=== PATIENT | female | born 1985 | race Caucasian/White ===

== ENCOUNTER 2021-10-16 22:09 | Emergency (ER) | payer OTHER, SELFPAY ==
[2021-10-16 22:13] VITALS: BP 161/90; PULSE 88; RESP 16; TEMP 36.5; O2SAT 100; BMI 22.3
--- NOTE | 2021-10-16 22:24 | ED_ITS ---
HPI - Overdose General Chief Complaint: Overdose Stated Complaint: od Time Seen by Provider: 10/16/21 22:19 Source: patient and EMS Mode of arrival: EMS Limitations: no limitations History of Present Illness HPI Narrative: Patient comes to the emergency room after an accidental heroin overdose. Patient admits to having drinking alcohol before as well. Patient states she was at a . At the the patient learned that 1 of her close friends is doing heroin. The patient was trying to lecture her friend on how to stop using heroin, as the patient has not used in over 8 years. However, due to the stress of the today she relapsed. Patient states it was an accidental overdose, denies suicidal or homicidal ideation. Patient was found by police department with agonal breathing in her car. Patient received 1 dose of nasal Narcan. MD complaint: accidental overdose Related Data Allergies Allergy/AdvReac Type Severity Reaction Status Date / Time No Known Allergies Allergy Verified 10/16/21 22:27 Review of Systems Verdana 4l Review of Systems: Verdana 4d Verdana 4d Constitutional : No Weight loss, No Fever, No Chills, No Night Sweats, No Fatigue, No Malaise ENT/Mouth : No Hearing loss, No Ear Pain, No Nasal Congestion, No Sinus Pain, No Hoarseness, No sore throat, No Rhinorrhea, No Swallowing DifficultyDifficulty Eyes: No Eye Pain, No Swelling, No Redness, No Foreign Body, No Discharge, No Vision Changes Cardiovascular : No Chest Pain, No SOB, No Dyspnea on Exertion, No Orthopnea, No Edema, No Palpitations Respiratory : No Cough, No Sputum, No Wheezing, No Smoke Exposure, No Dyspnea Gastrointestinal : No Nausea, No Vomiting, No Diarrhea, No Constipation, No abdominal Pain, No Hematochezia, No Melena Genitourinary : no irregular bleeding, No Dysuria, No Urinary Frequency, No Hematuria, No Urinary Incontinence, No Urgency, No Flank Pain, No Urinary Flow Changes, No Hesitancy Musculoskeletal : No joint pain, No Myalgias, No Joint Swelling Skin : No Skin Lesions, No rash Neuro : No Weakness, No Numbness, No Paresthesias, No Loss of Consciousness, No Dizziness, No Headache Psych : No Anxiety/Panic, No Depression, No SI/HI/AH/VH, No Social Issues, Heme/Lymph: No Bruising, No Bleeding,No Lymphadenopathy Endocrine : No Polyuria, No Polydipsia, No Temperature Intolerance PMF Past Medical History Medical History (Updated 10/16/21 @ 22:27 by Annamaria Elliott MD) Substance abuse Social History Social History Advance Directives: No Advance Directives Information Provided: Yes Physical Exam Verdana 4l Vital Signs: Verdana 4d Verdana 4d Vital Signs: Verdana 4d Verdana 4Bd Last Vital Signs Verdana 4d Therapeutic Recreation Leader New 4d Therapeutic Recreation Leader New 4d Temp 97.7 F 10/16/21 22:13 Therapeutic Recreation Leader New 4d Pulse 88 10/16/21 22:13 Therapeutic Recreation Leader New 4d Resp 16 10/16/21 22:13 BP 161/90 H 10/16/21 22:13 Pulse Ox 100 10/16/21 22:13 BMI result Body Mass Index 22.3 Const: Other: Appearance: Alert. Oriented X3. No acute distress. Eyes: Pupils equal, round and reactive to light. ENT: Pharynx normal. Neck: Normal inspection. Neck supple. No lymph nodes noted. No crepitus CVS: Normal heart rate and rhythm. Pulses normal. Normal S1 and S2 Respiratory: No respiratory distress. Breath sounds normal. No Wheezing. No rales Abdomen: Soft and nontender. No rigidity. No distention. good BS x4 Skin: Skin warm and dry. Normal skin color. Normal skin turgor. Extremities: No lower extremity edema. No Lacerations. No Rash Neuro: Oriented X 3. No motor deficit. No sensory deficit. Moving all extermities. No slurred speech. Psych: Calm, cooperative, teary Course Course Course Narrative: Patient remains alert and oriented x3, no acute distress, awake, oxygen saturation 100% on room air. Patient denies suicidal homicidal ideation. Patient declined to see a womens volleyball coach/care team. Patient was discharged with Narcan Discharge Plan Discharge Clinical Impression: Accidental heroin overdose Patient Disposition: Home, Self-Care Instructions: Adult Overdose (ED) Additional Instructions: Please follow-up with your primary care physician tomorrow. If you have any worsening or new symptoms, please return to the emergency room or call 911
[2021-10-16 23:33] VITALS: BP 117/73; PULSE 79; RESP 16; TEMP 36.9; O2SAT 100
== END 2021-10-16 23:40 | disposition home or self-care (01) ==
LOC: HO.ED 22:39
PROVIDERS: Emergency Provider Emergency Medicine; PCP Pediatrics
DX: T40.1X1A Poisoning by heroin, accidental (unintentional), initial encounter (principal); F19.10 Other psychoactive substance abuse, uncomplicated; Y92.810 Car as the place of occurrence of the external cause
CPT/HCPCS: 99283; 99284

== ENCOUNTER 2022-05-11 21:12 | Emergency (ER) | payer OTHER, SELFPAY ==
[2022-05-11 22:03] VITALS: BP 118/62; PULSE 82; RESP 18; TEMP 36.9; O2SAT 100; BMI 21.8
--- NOTE | 2022-05-12 00:13 | ED_ITS ---
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, tripped on the curb and cut knee, she is easily able to walk on, no other injury Related Data Allergies Allergy/AdvReac Type Severity Reaction Status Date / Time No Known Allergies Allergy Verified 10/16/21 22:27 Review of Systems Review of Systems: Positive for right knee laceration negatives are no dizziness no weakness no fainting no feeling faint no head injury no headache no loss of consciousness no dizziness no confusion no neck pain no back pain no rib pain no other extremity pains no difficulty walking Yes all other systems are reviewed and are negative [facility] Past Medical History Source: nursing notes reviewed Medical History (Updated 05/12/22 @ 00:17 by JOSE Barillas) Substance abuse Social History Social History Advance Directives: No Advance Directives Information Provided: No Physical Exam Vital Signs: Vital Signs: Last Vital Signs Temp 98.5 F 05/11/22 22:03 Pulse 82 05/11/22 22:03 Resp 18 05/11/22 22:03 BP 118/62 05/11/22 22:03 Pulse Ox 100 05/11/22 22:03 O2 Del Method 05/11/22 22:03 BMI result Body Mass Index 21.8 General appearance is no distress Head is normocephalic atraumatic Neck is supple nontender Respiratory no distress The back full range of motion Extremities full range of motion x4 Right knee there is a horizontal 1.5 cm laceration over the patella, there is no bony tenderness there is full range of motion in the knee and patient ambulates with mild limp Other extremities normal No focal motor sensory deficits Course Course Course Narrative: Procedure note right knee 1.5 cm lasted radiation is cleansed and irrigated with normal saline Anesthesia is 6 cc of 1% lidocaine Three sutures are placed Dressing is placed, patient ambulated easily and was discharged Discharge Plan Discharge Clinical Impression: Laceration of knee, right Patient Disposition: Home, Self-Care Additional Instructions: Stitches out 7-10 days Return any time for redness swelling any sign of infection You got a tetanus shot Follow with [facility] for suture removal or any problems for work related laceration Referrals: [facility] [Provider Group] (Right knee laceration at work) Stand Alone Forms: Work/School Release Interventions: ED Discharge Assessment Last Done: 05/12/22 00:53 Discharge Date/Time: 05/12/22 00:53
[2022-05-12] MEDS: Diphth,Pertus(ACell),Tet Adult 0.5 ML SYRINGE IM (00:21)
== END 2022-05-12 00:53 | disposition home or self-care (01) ==
PROVIDERS: Emergency Provider Internal Medicine; PCP Pediatrics
DX: S81.011A Laceration without foreign body, right knee, initial encounter (principal); W10.1XXA Fall (on)(from) sidewalk curb, initial encounter; Y93.01 Activity, walking, marching and hiking; Y92.480 Sidewalk as the place of occurrence of the external cause; Y99.0 Civilian activity done for income or pay
CPT/HCPCS: 12001; 90471; 90715; 99282; 99284

== ENCOUNTER 2025-05-12 23:57 | Emergency (ER) | payer SELFPAY ==
[2025-05-13] VITALS (8 sets, daily range): BP systolic 88–124; BP diastolic 40–76; PULSE 62–85; RESP 14–18; TEMP 36.2–36.8; O2SAT 95–100; BMI 24.0
--- OUTSIDE RECORDS SUMMARY | 2025-05-13 01:18 | XMS_ITS | Clinical Summary ---
Author Organization [address] Address [address] [place] [phone] Phone Care Team Providers Care Calibration Specialist Name Role Phone Natacha Still MD Primary Care Prov ider Allergies Active Allergy Reactions Criticality Noted Date Comments Other 04/05/2009 Seasonal Allergies Vancomycin 10/09/2013 Medications cyclobenzaprine (FLEXERIL) 10 mg tablet Take 1 tablet (10 mg total) by mouth 3 (three) times a day if needed. 3 Active valACYclovir (VALTREX) 1 gram tablet Take 2 tablets (2,000 mg total) by mouth 2 (two) times a day. 2 Active busPIRone (BUSPAR) 7.5 mg tablet TAKE 1 TABLET BY MOUTH THREE TIMES A DAY 1 Active ARIPiprazole (ABILIFY) 5 mg tablet Take 1 tablet (5 mg total) by mouth 1 (one) time each day in the morning. 5 Active clonazePAM (KlonoPIN) 0.5 mg tablet Take 1 tablet (0.5 mg total) by mouth 2 (two) times a day. Max Daily Amount: 1 mg 5 Active cloNIDine (CATAPRES) 0.1 mg tablet Take 1 tablet (0.1 mg total) by mouth 2 (two) times a day. 5 Active naltrexone (DEPADE) 50 mg tablet Take 1 tablet (50 mg total) by mouth 1 (one) time each day. 5 Active topiramate (TOPAMAX) 100 mg tablet Take 1 tablet (100 mg total) by mouth 1 (one) time each day. 5 Active buPROPion XL (WELLBUTRIN XL) 300 mg 24 hr tablet Take 1 tablet (300 mg total) by mouth 1 (one) time each day. 5 Active buPROPion XL (WELLBUTRIN XL) 150 mg 24 hr tablet Take 1 tablet (150 mg total) by mouth 1 (one) time each day. 5 Active norelgestromin- ethinyl estradiol (ORTHO EVRA) 150-35 mcg/[address] 1 patch on the skin 1 (one) time per week. 04/17/20 Discontinu ed(Therapy completed) acyclovir (ZOVIRAX) 400 mg tablet Take 1 tablet (400 mg total) by mouth 2 (two) times a day. 2 04/17/20 25 Discontinu ed(Therapy completed) buPROPion SR (WELLBUTRIN SR) 100 mg 12 hr tablet Take 1 tablet (100 mg total) by mouth 2 (two) times a day. 1 04/17/20 25 Discontinu ed(Therapy completed) Active Problems Problem Noted Date Diagnosed Date GARRETT III (cervical intraepithelial neoplasia III) 09/18/2024 Overview (09/18/2024): GARRETT II - III; Dr. Blank Opiate addiction ([facility] V24, [facility] V28) 02/2025 Overview (09/18/2024): pain meds (not prescribed) Opioid dependence in remission ([facility] V24, [facility] V28) 05/20/2018 Back spasm 02/03/2017 Humeral fracture 11/28/2013 Overview (09/18/2024): R; at the greater tuberosity Overweight 10/09/2013 Eczema 07/29/2011 Anxiety 07/03/2011 Depression 07/03/2011 Sleep disorder 07/03/2011 Acne 10/03/2008 Tobacco use disorder 10/03/2008 Encounters Date Type Department Care Team Description 04/17/2025 2:23 PM EDT - 04/17/2025 11:59 PM EDT Hospital [facility] [address], [place] [phone] Bilateral bunions Discharge Disposition: Home or Self Care 04/17/2025 1:30 PM EDT Office Visit Adult [facility] [address], [place] [phone] Iris Samano PA Bilateral bunions (Primary Dx); Numbness of left foot; Eustachian tube dysfunction, bilateral; Moderate episode of recurrent major depressive disorder (CMS/HCC V24, CMS/HCC V28); Screening for depression; Encounter for screening involving social determinants of health (SDoH); Encounter for screening mammogram for malignant neoplasm of breast from Last 3 Months Immunizations Name Administration Dates Next Due DTP 01/11/1990, 6,03/13/1985,01/11,1984 Hepatitis B (Rnozdwv-W-Gpfpm , Recombivax HB-Adult) 19yo and older 01/21/2000,08/20/1999,07/16/1999 Influenza Quadravalent, MDCK , 0.5ml, preservative free (Flucelvax) 6mo and older 05/20/2018,07/21/2016 Influenza trivalent, with pr eservative (Fluzone; Afluria) 6mo and older 09/04/2014,07/03/2011 MMR, measles mumps and rubel la Live (Priorix; M-M-R II) 12mo and older 04/13/1997,02/11/1986 Meningococcal Polysaccharide 05/03/2003 OPV 01/11/1990, 6,01/11/1985,11/11 Td Tetanus diptheria (Tdvax) 7yo and older 10/13/2007,01/21/2000 Tdap Tetanus diptheria acell ular pertussis (Boostrix; Adacel) 7yo and older 09/04/2014 Varicella live (Varivax) 12m o and older 02/11/1990 Surgical History Surgery Date Site/Laterality Comments OTHER SURGICAL HISTORY 2012 PROCEDURE: VT DRAINAGE FINGER ABSCESS SIMPLE Medical History Medical History Date Comments Meningitis spinal 08/1985 DX:Meningitis spinal Otitis DX:Otitis Varicella DX:Varicella GARRETT III (cervical intraepith elial neoplasia III) 12/21 DX:GARRETT III (cervical intraep ithelial neoplasia III); COMMENT: GARRETT II - III; Dr. Blank Opiate addiction ([facility] V2 4, [facility] V28) DX:Opiate addiction ([facility]); C OMMENT: pain meds (not prescribed) Tobacco use disorder DX:Tobacco use disorder Anxiety 07/03/2011 DX:Anxiety Depression 07/03/2011 DX:Depression Eczema 07/29/2011 DX:Eczema Humeral fracture 11/28/2013 DX:Humeral frac ture; COMMENT: R; at the greater tuberosity Family History Medical History Relation Name Comments Stroke Father Relation Name Status Comments Father Alive stroke Maternal Grandfather (Age 70) he art problem Maternal Grandmother (Age 58) br [place] Mother Alive healthy Paternal Grandfather alzihme rs Paternal Grandmother Alive healthy Sister 1 Alive healthy Sister 2 Alive healthy Social History Tobacco Use Types Packs/Day Years Used Date Smoking Tobacco: Every Day Cigarettes Smokeless Tobacco: Never Alcohol Use Standard Drinks/Week Comments Yes 0.8 (1 standard drink = 0.6 oz p ure alcohol) Housing Instability Answer Date Recorde d Are you worried that in the next 2 months you may not have stable housing? No 04/17/2025 Food Access & Nutrition Answer Date Rec orded Do you have access to a vari ety of food including fruits and vegetables? Yes 04/17/2025 Health Literacy Answer Date Recorded How often do you need to hav e someone help you when you read instructions, pamphlets, or other written material from your doctor or pharmacy? Never 04/17/2025 Caregiver: How often do you need to have someone help you when you read instructions, pamphlets, or other written material from your doctor or pharmacy? Not on file 04/17/2025 Financial Risk Answer Date Recorded How hard is it for you to pa y for the very basics like food, housing, medical care, and air conditioning / heating? Not very hard 04/17/2025 Transportation Answer Date Recorded Has the lack of transportati on kept you from meetings, work, or from getting things needed for daily living? No Has the lack of transportati on kept you from medical appointments or from getting medications? No 04/17/2025 Social Isolation Answer Date Recorded How often do you feel lonely or isolated from th ose around you? Never 04/17/2025 Food Risk Answer Date Recorded Within the past 12 months we worried whether our food would run out before we got money to buy more. Never true 04/17/2025 Within the past 12 months th e food we bought just didn't last and we didn't have money to get more. Never true 04/17/2025 Dependent Care Answer Date Recorded Do you need help finding or paying for care for your loved ones. For example, children's institution attendant or elderly care for an older adult? No 04/17/2025 Education Answer Date Recorded Do you think completing more education or training, like finishing a GED, going to college, or learning a trade, would be helpful for you? No 04/17/2025 Employment and Income Answer Date Recor ded During the last four weeks, have you been actively looking for work? No 04/17/2025 Living Situation Answer Date Recorded What is your living situation? 0 04/17/2025 Comments Unknown Sex and Gender Information Value Date Recorded Sex Assigned at Not on file Legal Sex Female 7:48 AM EST Gender Identity Not on file Sexual Orientation Not on file Obstetrics History Last Filed Vital Signs Vital Sign Reading Time Taken Comments Blood Pressure 98/58 04/17/2025 1:39 PM EDT Pulse 66 04/17/2025 1:39 PM EDT Temperature 36.6 C (97.8 F) 04/17/2025 1:39 PM EDT Respiratory Rate 13 04/17/2025 1:39 PM EDT Oxygen Saturation 99% 04/17/2025 1:39 PM EDT Inhaled Oxygen Concentration - - Weight 54.9 kg (121 lb) 04/17/2025 1:39 PM EDT Height 162.6 cm (5' 4 ) 04/17/2025 1:39 PM EDT Body Mass Index 20.77 04/17/2025 1:39 PM EDT Plan of Treatment Upcoming Encounters Date Type Department Care Team (Late st Contact Info) Description 06/05/2025 8:00 AM EDT Office Visit Adult [facility] [address] [place] [phone] Iris Samano PA [address] [place] [phone] Health Maintenance Due Date Last Done Comments Breast Cancer Screening 1984 Hepatitis A Vaccines (1 of 2 - Risk 2-dose series) 2003 Pneumococcal Vaccine: Pediatrics (0 to 5 Years) and At-Risk Patients (6 to 49 Years) (1 of 2 - PCV) 2003 Cervical Cancer Screening: Pap Smear 11/03/2019 11/03/2016 HIV Screening 08/22/2022 Hepatitis C Screening 08/22/2022 DTaP,Tdap,and Td Vaccines (9 - Td or Tdap) 09/04/2024 09/04/2014, 10/13/2007, 01/21/2000, Additional history exists Influenza Vaccine (#1) 2025 8, 07/21/2016, 09/04/2014, Additional history exists Social Influencers of Health Screening 04/17/2026 04/17/2025 IPV Vaccines Completed 01/11/1990, 1009/1985, 01/11/1985, Additional history exists Varicella Vaccines Aged Out 02/11/1990 No longer eligible based on patient's age to complete this topic MMR Vaccines Completed 04/13/1997, 02/11/1986 Hepatitis B Vaccines Completed 01/21/2000, 08/20/1999, 07/16/1999 Meningococcal ACWY Vaccine Aged Out 05/03/2003 N o longer eligible based on patient's age to complete this topic Depression Screening Completed 04/17/2025 COVID-19 Vaccine Discontinued HIB Vaccines Aged Out No longer eligi ble based on patient's age to complete this topic HPV Vaccines Aged Out No longer eligi ble based on patient's age to complete this topic Meningococcal B Vaccine Aged Out No l onger eligible based on patient's age to complete this topic RSV Immunization Patients Under 20 months Aged Out No longer eligible based on patient's age to complete this topic Procedures Procedure Name Priority Date/Time Associated Diagnosis Comments XR FOOT 3+ VIEWS BILAT Routine 04/17/2025 2:39 PM EDT Bilateral bunions HM PAP SMEAR Routine 11/03/2016 from Last 3 Months or Most Recently Relevant to Health Maintenance Results * XR Foot 3+ Views bilat (04/17/2025 2:39 PM EDT) Anatomical Region Laterality Modality Lower Extremities, Foot [facility] 04/17/2025 9:52 PM EDT Impressions 04/17/2025 9:56 PM EDT Mild bilateral hallux valgus deformities with probable soft tissue bunions. Minimal degenerative changes at the first MTP joints. POS - [id number] -------- FINAL REPORT -------- Dictated By: Jane Robledo Dictated Date: 04/17/2025 21:52 ET Assigned Physician: Jane Robledo Reviewed and Electronically Signed By: Jane Robledo Signed Date: 04/17/2025 21:56 ET Workstation ID: [id number] Transcribed By: Self Edit Transcribed Date: 04/17/2025 21:52 ET Narrative 04/17/2025 9:56 PM EDT EXAM: Bilateral foot x-ray HISTORY: Bilateral foot pain. Bilateral bunions. COMPARISON: None FINDINGS: 3 weightbearing views of both feet were performed. Mild bilateral hallux valgus deformities. Soft tissue swelling adjacent to the medial first metatarsal heads presumably represents bunions. No acute fracture or malalignment. Joint spaces are maintained. Minimal spurring at the first MTP joints. No destructive bone lesion. Procedure Note Jane Robledo MD - 04/17/2025 EXAM: Bilateral foot x-ray HISTORY: Bilateral foot pain. Bilateral bunions. COMPARISON: None FINDINGS: 3 weightbearing views of both feet were performed. Mild bilateral hallux valgus deformities. Soft tissue swelling adjacent tothe medial first metatarsal heads presumably represents bunions. No acutefracture or malalignment. Joint spaces are maintained. Minimal spurring atthe first MTP joints. No destructive bone lesion. IMPRESSION: Mild bilateral hallux valgus deformities with probable soft tissuebunions. Minimal degenerative changes at the first MTP joints. POS - [id number] -------- FINAL REPORT -------- Dictated By: Jane Robledo Dictated Date: 04/17/2025 21:52 ET Assigned Physician: Jane Robledo Reviewed and Electronically Signed By: Jane Robledo Signed Date: 04/17/2025 21:56 ET Workstation ID: [id number] Transcribed By: Self Edit Transcribed Date: 04/17/2025 21:52 ET Iris GARCIA IMG XR PROCEDURES Final Result * Pap Smear (11/03/2016) Pap smear No Interpretation , Abstracted us Historical Provider HEALTH MAINTENANCE Final Result from Last 3 Months or Most Recently Relevant to Health Maintenance Insurance [facility] Care Teams Calibration Specialist Relationship Specialty Start Date End Date Natacha Still MD [address] [place] [phone] PCP - General Internal Medicine 11/13/24
--- OUTSIDE RECORDS SUMMARY | 2025-05-13 01:18 | XMS_ITS ---
Author Name [facility] Organization Unknown Care Team Organization Name Specialty Phone Email Start Date End Da te [employer] Insurance 10/03/2023 1
--- OUTSIDE RECORDS SUMMARY | 2025-05-13 01:18 | XMS_ITS | Clinical Summary ---
Author Organization [facility] Address [address] [place] [id number] Phone Care Team Providers Care Jewel Supervisor Name Role Phone Bev Bolanos MD Primary Care Provider + Allergies Active Allergy Reactions Criticality Noted Date Comments Vancomycin Hcl Anaphylaxis High 09/29/2016 Medications buPROPion (WELLBUTRIN) 100 MG immediate release tablet Take 200 mg by mouth daily. Active busPIRone (BUSPAR) 7.5 MG tablet Take 7.5 mg by mouth 3 (three) times a day. Active LORazepam (ATIVAN) 0.5 MG tablet TAKE 1 TABLET BY ORAL ROUTE TWICE A DAY NEEDED FOR SEVERE ANXIETY-BRENNER ITED DOSE 2 Active XULANE 150-35 mcg/24 hrIndications:Init ial encounter for management of contraceptive patch use APPLY 1 PATCH ONCE A WEEK 9 patch 2 Active Active Problems Problem Noted Date Diagnosed Date History of cervical dysplasia 12/08/2017 Overview (12/08/2017): 2010: LEEP GARRETT 2-3, negative margins Follow up pap ASCUS/HPV positive 2012, 2013, 2015: NIL/HPV neg Plan: routine screening (next due in 2019) Tobacco dependence syndrome 12/08/2017 Assessment & Plan (12/08/2017 1:36 PM EDT): Encouraged Rekha on her decision to quit smoking, discussed relationship of cigarette use with HPV. Uses hormonal contraceptive patch as primary control method 12/08/2017 Assessment & Plan (12/08/2017 1:37 PM EDT): Patch refilled x1 year, reviewed need to switch to progesterone-only method after age 34 if she continues to smoke. Benign cyst of left breast in female 11/23/2017 Assessment & Plan (12/08/2017 1:40 PM EDT): Rekha will monitor - if cyst enlarges or becomes tender/painful, will consider aspiration. Assessment & Plan (11/23/2017 5:58 PM EDT): Most likely fibroadenoma; advised that radiologist will want bilateral dx mammo with the u/s and that would usually come under her deductible as this is not screening; tests ordered; if solid - bx; if cyst, no need for bx; if nothing seen but lump still there, needs surgeon consult Immunizations Immunization Administration Dates Next Due DTP 01/11/1990, 6,03/13/1985,01/11,1984 Hepatitis B Adult 01/21/2000,08/20/1999,07/16/19 99 INFLUENZA, SPLIT VIRUS, TRIV ALENT W/ PRESERVATIVE IM 09/04/2014,07/03/2011 Influenza Quadrivalent MDCK Preservative Free IM 05/20/2018,07/21/2016 MMR 04/13/1997,02/11/1986 Meningococcal MPSV4 05/03/2003 Polio - OPV 01/11/1990, 6,01/11/1985,11/11 Td (adult),2 Lf Tetanus Toxo id, PF, Adsorbed 10/13/2007,01/21/2000 Tdap 09/04/2014 Varicella 02/11/1990 Family History Medical History Relation Comments Stroke Father Breast cancer Maternal Aunt Breast cancer Maternal Grandmother Relation Status Comments Father Alive Maternal Aunt Maternal Grandmother Mother Alive Social History Tobacco Use Types Packs/Day Years Used Date Smoking Tobacco: Former Cigarettes Q uit: 11/2019 Smokeless Tobacco: Never Alcohol Use Standard Drinks/Week Comments Not Currently 0 (1 standard drink = 0.6 oz pur e alcohol) Education Answer Date Recorded Are you interested in more education? Not on talia e 01/07/2023 Are you concerned about learning? Not on file 01/07/2023 No 01/07/2023 No 01/07/2023 Digital Access Answer Date Recorded No 02/08/2023 No 02/08/2023 Reliable internet access at home? Not on file 02/08/2023 Device with a working camera? Not on file Comments No Sex and Gender Information Value Date Recorded Sex Assigned at Not on file Legal Sex Female 7:12 PM EST Gender Identity Not on file Sexual Orientation Not on file Occupation Industry Job Start Date Job End Date Working Not on file Not on file Not on file Last Filed Vital Signs Vital Sign Reading Time Taken Comments Blood Pressure 129/95 01/06/2022 2:38 PM EDT Pulse 78 01/06/2022 2:38 PM EDT Temperature 36.8 C (98.3 F) 01/06/2022 2:38 PM EDT Respiratory Rate 22 01/06/2022 2:38 PM EDT Oxygen Saturation 100% 01/06/2022 2:38 PM EDT Inhaled Oxygen Concentration - - Weight 62.8 kg (138 lb 6.4 oz) 01/03/2021 3:36 P M EDT Height 162.6 cm (5' 4 ) 01/03/2021 3:36 PM EDT Body Mass Index 23.76 01/03/2021 3:36 PM EDT Plan of Treatment Health Maintenance Due Date Last Done Comments DEPRESSION SCREENING 1996 SMOKING Hx and SMOKELESS TOBACCO SCREENING 1997 HEPATITIS C SCREENING 2002 HIV ONE-TIME SCREENING (18-65 YEARS) 2002 PAP SMEAR 01/04/2024 01/03/2021, 11/07/2014 COVID-19 VACCINE ( season) 2024 01/30/2021, 01/02/2021 Adult Td,Tdap Booster 09/04/2024 09/04/2014 , 10/13/2007, 01/21/2000 MAMMOGRAM 2024 INFLUENZA VACCINE (#1) 2025 8, 07/21/2016, 09/04/2014, Additional history exists MENINGOCOCCAL VACCINES (ACWY) Aged Out 05/03/2003 No longer eligible based on patient's age to complete this topic HEPATITIS A VACCINES Aged Out No long er eligible based on patient's age to complete this topic HIB VACCINES Aged Out No longer eligi ble based on patient's age to complete this topic MENINGOCOCCAL VACCINES (B) Aged Out N o longer eligible based on patient's age to complete this topic PNEUMOCOCCAL VACCINES (0-49 years) Aged Out No longer eligible based on patient's age to complete this topic Medical Devices Not on file Procedures Procedure Name Priority Date/Time Associated Diagnosis Comments PAP TEST Routine 01/03/2021 12:00 AM EDT from Last 3 Months or Most Recently Relevant to Health Maintenance Results * (ABNORMAL) Pap Smear (01/03/2021 12:00 AM EDT) 01/03/2021 01/06/2021 9:1 8 AM EDT Narrative SEE NARRATIVE - 01/10/2021 12:17 [place] [address] Press Tender Star Signal: Dorene Moreland MD FILING OR REGISTRY CLERK Cytology Report FINAL DIAGNOSIS A. PAP SMEAR (SUREPATH) CE: SPECIMEN ADEQUACY: Satisfactory for evaluation; transformation zone present. INTERPRETATION: EPITHELIAL CELL ABNORMALITY - SQUAMOUS. Atypical squamous cells of undetermined significance. Fungal organisms morphologically consistent with Mirian species. Electronically Signed Out By: CLAUS Nichole MD(ASCP) By his/her signature above, the pathologist listed as making the Final Diagnosis certifies that he/she has personally reviewed this case and confirmed or corrected the diagnosis. The Pap test is a screening test primarily for squamous cancers and precursors and has associated false-negative and false-positive results. New technologies such as liquid-based preparations may decrease but will not eliminate all false-negative results. Regular sampling and follow-up of unexplained clinical signs and symptoms are recommended to minimize false negative results. PROCEDURES/ADDENDA HPV Testing (Requested) Ordered Date: 01/06/2021 A. PAP SMEAR (SUREPATH) CE: Human Papilloma Virus Test Negative for high-risk human papillomavirus types 16, 18, 45 and the Other high risk probe set (Includes 31, 33, 35, 39, 51, 52, 56, 58, 59, 66, 68) by Edgar Ozark Onclarity HR-HPV analysis. Clinical correlation is advised. This HPV test was performed at [facility], [address] [place] [address]. This test has been FDA approved for SurePath cervical cytology specimens. The accuracy and precision of this test for all other specimen sources has been verified in the Cytopathology Laboratory of the [facility] and has not been cleared or approved by the U.S. Food and Drug Administration. Clinical correlation is advised. CLINICAL HISTORY Date of Last Menstrual Period: 12-10-2020 Other Clinical Conditions: Screening Pap SPECIMEN SOURCE A: PAP SMEAR (SUREPATH) CE Patient Name: REKHA VILLAFANA : 1985 (Age: 35) Sex: F Institution[facility] Location: [facility] Date of Collection: 01/03/2021 Date of Reported: 01/10/2021 12:17 Results to: Kevin Blank MD, BS Kevin Blank MD CYTOLOGY ORDERABLES Final Res ult SEE NARRATIVE from Last 3 Months or Most Recently Relevant to Health Maintenance [place] [address] [place] [address] NON NSPG PCP [facility] [place] [address] HE[address] SAFETY [place] [address] [place] [address] NON NSPG PCP [facility] SAFETY NET PARTIAL [facility] NON NSPG PCP S[facility] [employer] SAF[employer] [place] [address] [place] [address] NON NSPG PCP [facility] [employer] [facility]AFET[facility] NET [facility] NON [facility]SPG PCP [facility] [place] [facility] SAFET[facility] NET PARTIAL NON NSPG PCP S[facility] [employer] SAFET[employer] [place] [address] [place] [address] NON NSPG PCP [facility] [employer] SAFETY NET PARTIAL NON NSPG PCP S[facility] [place] [address] [place] [address] NON NSPG PCP [facility] SAFETY NET PARTIAL Care Teams Jewel Supervisor Relationship Specialty Start Date End Date Bev Bolanos MD [address] [place] [address] PCP - General 09/16/17 Additional Source Comments The information contained in this document represents components of the legal health record. It is not the complete legal health record.[facility]
--- NOTE | 2025-05-13 01:51 | PC.NURSE ---
MD aware of low BP
--- NOTE | 2025-05-13 02:16 | PC.NURSE ---
all restraints removed, 18g IV placed to LAC. LR infusing. BP low. pt resting comfortably with eyes closed, breathing even and unlabored. sitter at bedside
[2025-05-13] MEDS: Lactated Ringers 1,000 ML 999 ML IV (02:17)
[2025-05-13 02:23] LABS: MANUAL DIFF FLAG NO
[2025-05-13 02:24] LABS: Hematocrit 24.3 % (37.0-47.0); Hemoglobin 9.0 g/dl (12.0-16.0); Imm Gran Abs Auto 0.02 X10*3/uL (0.00-0.03); Imm Gran Pct Auto 0.7 % (0.0-0.4); Lymphocytes Absolute Auto 0.8 X10*3/uL (1.2-4.9); Mean Corpuscular HGB Conc 37.0 g/dl (31.0-35.0); Mean Corpuscular Hemoglobin 34.5 pg (27.0-33.0); Mean Corpuscular Volume 93.1 fL (80.0-98.0); NRBC Abs Auto 0.000 X10*3/uL (0.0-0.012); NRBC Pct Auto 0.0 /100WBC (0.0-0.2); Platelet Count 118 X10*3/uL (160-400); Red Blood Count 2.61 X10*6/uL (4.20-5.50); White Blood Count 2.9 X10*3/uL (4.8-10.8)
[2025-05-13 02:42] LABS: Alanine Aminotransferase 61 U/L (0-31); Albumin Level 4.2 g/dL (3.5-5.0); Alkaline Phosphatase 39 U/L (39-117); Anion Gap 12 (12-20); Aspartate Amino Transferase 70 U/L (5-31); Blood Urea Nitrogen 16 mg/dL (9-16); Calcium 9.0 mg/dL (8.4-10.2); Carbon Dioxide 23 mmol/L (22-29); Chloride 117 mmol/L (96-108); Creatinine Clr Calc Pharmacy 58.7; Estimated Glomerular Filt Rate 55; Potassium 3.7 mmol/L (3.3-5.1); Sodium 148 mmol/L (135-145); Total Protein 5.9 g/dL (6.5-8.0)
--- NOTE | 2025-05-13 05:23 | PC.NURSE ---
pt JAGDISH was found sleeping under a car, covered in vomit. upon ED arrival pt was increasingly uncooperative, very reluctant to tire changer into hospital attire. wanted to leave to go see dying mother. pt unsteady on her feet. assisted back into bed multiple times by ED Techs and security. pt increasingly agitated trying to leave ED, pt was medicated per MAR. remained restless and became combative with security while attempting to leave. pt was assisted back into bed and restrained at that time. medicated per NOV again. pt thrashing in bed while restrained. eventually pt was resting comfortably on the stretcher, all restraints removed.
--- NOTE | 2025-05-13 06:50 | ED_ITS ---
HPI - Alcohol General Chief Complaint: ETOH/Substance Use Stated Complaint: ETOH Time Seen by Provider: 05/13/25 00:34 Source: patient and EMS Mode of arrival: EMS Limitations: altered mental status (Intoxicated) History of Present Illness ED Provider: Dr. Tara Hodges HPI narrative: 39-year-old female with unknown past medical history presenting via EMS after reportedly being found in the street underneath a car, covered in vomit. Patient is refusing to answer questions at this time. States ?my mother is dying and I want to go take care of her?. She is refusing to acknowledge that she was found on the side of the road unconscious. She has no obvious signs of trauma. She has a smell of alcohol on her breath. Admits to drinking today. No further information able to be obtained at this time. Related Data Home Medications ?Medication ?Instructions ?Recorded ?Confirmed bupropion HCl 300 mg 24 hr tablet, 300 mg PO DAILY 01/02 extended release buspirone 15 mg tablet 15 mg PO TID 06/16/22 Allergies Allergy/AdvReac Type Severity Reaction Status Date / Time vancomycin Allergy Intermediate Anaphylaxis Verified 05/13/25 00:30 Review of Systems 2 Review of Systems: As per HPI, full review of systems performed and negative but for the above mentioned pertinent positives and negatives. [facility] Past Medical History Medical History Substance abuse Social History Social History Advance Directives: No Physical Exam ED Exam Exam: GENERAL: Appears intoxicated, GCS 13, eyes open to voice, slurred speech, belligerent. SKIN: Normal skin color for ethnicity, warm, dry, no rashes noted. HEENT: Normocephalic, atraumatic, no stridor, posterior oropharynx nonerythematous, dentition intact, EOMI, pupils are pinpoint bilaterally, reactive to light, no signs of head trauma. NECK: Soft, supple, no step-offs, no deformities, no lymphadenopathy. CHEST: Heart regular tachycardia, no murmurs, symmetric chest rise and fall. PULMONARY: Clear to auscultation bilaterally, diminished at the bases, no labored breathing, no wheezes/rhales/rhonchi. ABDOMINAL: Soft, nondistended, positive bowel sounds in all quadrants. : Deferred. MUSCULOSKELETAL: Normal tone, full range of motion, no deformities, no peripheral edema. NEURO: GCS 13, eyes open to voice, slightly slurred speech, CN II through XII intact, equal strength and sensation bilateral upper and lower extremities, no focal neurologic deficits. PSYCHIATRIC: Agitated affect, poor eye contact, belligerent. Vital Signs: Vital Signs - 24 hr 05/13/25 00:12 05/13/25 01:35 05/13/25 02:15 Temperature 97.1 F Pulse Rate 84 80 71 Respiratory Rate 18 16 14 Blood Pressure 124/75 88/45 L 91/40 L Pulse Oximetry 100 97 98 Oxygen Delivery Method Room Air Room Air Room Air 05/13/25 03:10 05/13/25 05:31 Temperature Pulse Rate 73 73 Respiratory Rate 16 14 Blood Pressure 95/52 L 93/49 L Pulse Oximetry 98 95 Oxygen Delivery Method Room Air Room Air BMI result Body Mass Index 24.0 Course Reevaluation(s) Reevaluation #1: The patient was observed to be acutely agitated, obviously intoxicated with a slurred speech and unsteady gait, presenting an immediate risk of harm to herself and staff. Verbal de-escalation and redirection techniques were attempted and unsuccessful. Given the patient?s impaired decision-making capacity due to intoxication, and the immediate risk posed, a determination was made that the use of chemical and physical restraints was necessary to ensure the safety of the patient and staff and to allow for essential medical/psychiatric evaluation and treatment. The least restrictive measures were chosen, and continuous monitoring was initiated per protocol. This intervention was implemented in accordance with hospital policy and [facility] law regarding emergency restraint use. Time: 00:50 Reevaluation #2: Patient is ambulatory in the emergency department, clear speech and a steady gait. At this point I do feel she has capacity to make decisions. Using shared decision making, plan for discharge home to follow-up with primary care and/or specialist. Patient understands and agrees with plan for discharge. Discharged home in stable condition. Time: 06:57 Medical Decision Making Medical Decision Making MDM Narrative: Patient presents today with a chief complaint of altered mental status, intoxication. Differential diagnosis for AMS is incredibly broad and includes infection, intracranial process such as hemorrhage, stroke or mass, electrolyte abnormality, hypercarbia, hypoxia, toxic encephalopathy, among many others. Broad-based workup was initiated to further evaluate the etiology of patient's symptoms based on the above exam and history. Patient initially refusing any treatment though she appears to be intoxicated and I do not feel she has capacity to make decisions at this time. She was found unconscious on the side of the road in a puddle of vomit. Medicating with droperidol to facilitate her workup today. Lab Data 05/13/25 02:20 05/13/25 02:20 Labs: Lab Results 05/13/25 Range/Units 02:20 WBC 2.9 L (4.8-10.8) X10*3/uL RBC 2.61 L (4.20-5.50) X10*6/uL Hgb 9.0 L (12.0-16.0) g/dl Hct 24.3 L (37.0-47.0) % MCV 93.1 (80.0-98.0) fL MCH 34.5 H (27.0-33.0) pg MCHC 37.0 H (31.0-35.0) g/dl RDW 13.5 (11.0-16.0) % Plt Count 118 L (160-400) X10*3/uL MPV 9.1 L (9.4-12.3) fL Immature Gran % (Auto) 0.7 H (0.0-0.4) % Neut % (Auto) 66.2 (45-73) % Lymph % (Auto) 28.3 (20-40) % [place] % (Auto) 3.1 (2-11) % Eos % (Auto) 1.0 (0-4) % Baso % (Auto) 0.7 (0-2) % Lymph # (Auto) 0.8 L (1.2-4.9) X10*3/uL [place] # (Auto) 0.1 (0.1-1.2) X10*3/uL Eos # (Auto) 0.0 (0.0-0.4) X10*3/uL Baso # (Auto) 0.0 (0.0-0.2) X10*3/uL Abs Immat Gran (auto) 0.02 (0.00-0.03) X10*3/uL Absolute Neuts (auto) 1.9 L (2.0-8.3) x10*3/uL Absolute Nucleated RBC 0.000 (0.0-0.012) X10*3/uL Nucleated RBC % (auto) 0.0 (0.0-0.2) /100WBC Sodium 148 H (135-145) mmol/L Potassium 3.7 (3.3-5.1) mmol/L Chloride 117 H (96-108) mmol/L Carbon Dioxide 23 (22-29) mmol/L Anion Gap 12 (12-20) BUN 16 (9-16) mg/dL Creatinine 1.10 (0.5-1.4) mg/dL Estim Creat Clear Calc 58.7 Estimated GFR 55 Random Glucose 91 (60-115) mg/dL Calcium 9.0 (8.4-10.2) mg/dL Total Bilirubin 1.0 (0.0-1.0) mg/dL AST 70 H (5-31) U/L ALT 61 H (0-31) U/L Alkaline Phosphatase 39 (39-117) U/L Total Protein 5.9 L (6.5-8.0) g/dL Albumin 4.2 (3.5-5.0) g/dL Ethyl Alcohol 197 mg/dL Medications Administered Discontinued Medications Generic Name Dose Route Start Last Admin Trade Name Freq PRN Reason Stop Dose Admin Droperidol 1.25 mg 05/13/25 00:37 05/13/25 00:50 Droperidol 5 Mg/2 Ml Vial IM 05/13/25 00:38 1.25 mg ONCE ONE Administration Lactated Ringer's 1,000 mls @ 999 mls/hr 05/13/25 02:15 05/13/25 04:04 Lr IV 05/13/25 03:15 Infused .Q1H1M MICHAEL Infusion Midazolam HCl 5 mg 05/13/25 01:02 05/13/25 01:15 Midazolam Hcl 5 Mg/Ml Vial IM 05/13/25 01:03 5 mg ONCE ONE Administration Discharge Plan Discharge Clinical Impression: Alcoholic intoxication, Pancytopenia, Hypernatremia Patient Disposition: Home, Self-Care Instructions: Alcohol Intoxication (ED), Pancytopenia (DC) Additional Instructions: Follow-up with your primary care doctor as soon as possible regarding your blood counts. These should be rechecked within the next 6 months. You may follow-up with the nutrition counselor as well. If you desire to stop drinking alcohol, you can always return to the emergency department for treatment. Otherwise there are multiple alcohol treatment facilities in the area that can help you with your drinking. Alcohol use disorder You were seen in the Emergency Department today for treatment of alcohol use disorder.? You may have been given medications to help with your withdrawal symptoms.? Please do not drink alcohol with them. This is very dangerous and can cause respiratory depression or other adverse reactions depending on the medication. If you would like to cut down or stop your alcohol use please consider calling our outpatient Addiction Treatment office:? [facility] ([id number] [address] You have also been given a list of treatment providers in the area that can assist as well.? If you experience seizures, vomiting blood, black stools, falls, severe headache, chest pain, fevers, trouble breathing, hallucinations or any other concerns you need to call 911 or seek immediate care. Please stay hydrated. Prescriptions: No Action bupropion HCl 300 mg tablet extended release 24 hr 300 mg PO DAILY buspirone 15 mg tablet 15 mg PO TID Referrals: [facility] [place] Oncology/Hematology [Provider Group, Hematology] Clinical Impression: Pancytopenia Print Language: Greenlandic
--- NOTE | 2025-05-13 07:22 | PC.NURSE ---
patient awake, requesting to be discharged home at this time. denies si/hi, just stating that she wants to go home. offered drink/food - denied. belongings returned to patient, awake and getting dressed at this time
== END 2025-05-13 07:51 | disposition home or self-care (01) ==
PROVIDERS: Emergency Provider Emergency Medicine
DX: F10.129 Alcohol abuse with intoxication, unspecified (principal); E87.0 Hyperosmolality and hypernatremia; D61.818 Other pancytopenia; R11.2 Nausea with vomiting, unspecified; Z51.81 Encounter for therapeutic drug level monitoring; Z79.899 Other long term (current) drug therapy
CPT/HCPCS: 36415; 80053; 80307; 85025; 96360; 96361; 96372; 99284; 99285; J1790; J2250; J7120

== ENCOUNTER → 2025-06-15 14:20 | Outpatient (BNV) | payer BC, SELFPAY | PROVIDERS: PCP Internal Medicine; Referring Provider Internal Medicine; Visit Provider Internal Medicine | DX: D61.818 Other pancytopenia (principal) | CPT/HCPCS: 99203 ==

== ENCOUNTER → 2025-07-12 11:00 | Outpatient (BNV) | payer BC, SELFPAY | PROVIDERS: Visit Provider Psychiatry & Neurology Psychiatry | DX: F19.10 Other psychoactive substance abuse, uncomplicated (principal); F33.9 Major depressive disorder, recurrent, unspecified | CPT/HCPCS: 99203 ==

== ENCOUNTER 2025-07-17 14:33 | Outpatient (AMB) | payer BC, SELFPAY ==
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
[2025-07-17 14:49] VITALS: BP 126/70; PULSE 78; O2SAT 97; BMI 21.1
--- OUTSIDE RECORDS SUMMARY | 2025-07-17 17:35 | XMS_ITS | Clinical Summary ---
Author Organization [facility] Address [address] [place] [id number] Phone Care Team Providers Care Information Systems Architect Name Role Phone Bev Bolanos MD Primary [...] YEARS) 2002 PAP SMEAR 01/04/2024 01/03/2021, 11/07/2014 Adult Td,Tdap Booster 09/04/2024 09/04/2014 , 10/13/2007, 01/21/2000 MAMMOGRAM 2024 INFLUENZA VACCINE (#1) 2025 8, 07/21/2016, 09/04/2014, Additional history exists COVID-19 VACCINE ( season) 2025 01/30/2021, 01/02/2021 MENINGOCOCCAL VACCINES (ACWY) Aged Out 05/03/2003 No [...] SEE NARRATIVE - 01/10/2021 12:17 [place] [address] Auxiliary Power Equipment Operator: Dorene Moreland MD HOTEL ASSISTANT MANAGER Cytology Report FINAL DIAGNOSIS A. PAP SMEAR [...] 56, 58, 59, 66, 68) by Edgar Cook On[facility]arity HR-HPV analysis. Clinical correlation is advised. This HPV test was performed at [facility], [address] [place] [address]. This test has been FDA approved for [facility] cervical cytology specimens. The accuracy and precision of this test for all other specimen sources has been verified in the Cytopathology Laboratory of the [facility] and has not been cleared or approved by the U.S. Food and Drug Administration. Clinical correlation is advised. CLINICAL HISTORY Date of Last Menstrual Period: 12-10-2020 Other Clinical Conditions: Screening Pap SPECIMEN SOURCE A: PAP SMEAR (SUREPATH) CE Patient Name: REKHA VILLAFANA : 1985 (Age: 35) Sex: F [facility] Location: [facility] Date of Collection: 01/03/2021 Date of Reported: 01/10/2021 12:17 Results to: Kevin Blank MD, BS Kevin Blank MD CYTOLOGY ORDERABLES Final Res ult SEE NARRATIVE from Last 3 Months or Most Recently Relevant to Health Maintenance [place] [address] [place] [address] NON NSPG PCP [facility] [place] [address] [place] [address] NON NSPG PCP [facility] NET PARTIAL [facility] NON NSPG PCP S[facility] [employer] [place] [address] [place] [address] NON NSPG PCP [facility] NET PARTIAL [facility] NON [facility]SPG PCP [place] [facility] PARTIAL NON NSPG PCP S[facility] [employer] [place] [address] [place] [address] NON NSPG PCP [facility] [employer] NET PARTIAL NON NSPG PCP S[facility] [place] [address] [address] NON NSPG PCP [facility] Care Teams Information Systems Architect Relationship Specialty Start Date End Date Bev Bolanos MD [address] [place] [id number] PCP - General 09/16/17 Additional Source Comments The information contained in this document represents components of the legal health record. It is not the complete legal health record.[facility]
--- OUTSIDE RECORDS SUMMARY | 2025-07-17 17:35 | XMS_ITS | Clinical Summary ---
Author Organization [address] Address [address] [place] [phone] Phone Care Team Providers Care Digital Forensics Investigator Name Role Phone Natacha Still MD Primary Care Prov ider Allergies Active Allergy Reactions Criticality Noted Date Comments Other 04/05/2009 Seasonal Allergies Vancomycin 10/09/2013 Medications cyclobenzaprine (FLEXERIL) 10 mg tablet Take 1 tablet (10 mg total) by mouth 3 (three) times a day if needed. 11/02/2022 Active valACYclovir (VALTREX) 1 gram tablet Take 2 tablets (2,000 mg total) by mouth 2 (two) times a day. 06/08/2022 Active busPIRone (BUSPAR) 7.5 mg tablet TAKE 1 TABLET BY MOUTH THREE TIMES A DAY 12/09/2020 Active ARIPiprazole (ABILIFY) 5 mg tablet Take 1 tablet (5 mg total) by mouth 1 (one) time each day in the morning. 03/16/2025 Active clonazePAM (KlonoPIN) 0.5 mg tablet Take 1 tablet (0.5 mg total) by mouth 2 (two) times a day. 03/21/2025 Active cloNIDine (CATAPRES) 0.1 mg tablet Take 1 tablet (0.1 mg total) by mouth 2 (two) times a day. 03/16/2025 Active buPROPion XL (WELLBUTRIN XL) 300 mg 24 hr tablet Take 1 tablet (300 mg total) by mouth 1 (one) time each day. 01/16/2025 Active buPROPion XL (WELLBUTRIN XL) 150 mg 24 hr tablet Take 1 tablet (150 mg total) by mouth 1 (one) time each day. 01/16/2025 Active Active Problems Problem Noted Date Diagnosed Date Decreased GFR 05/30/2025 Hypernatremia 05/30/2025 GARRETT III (cervical intraepithelial neoplasia III) 09/18/2024 Overview (09/18/2024): GARRETT II - III; Dr. Blank Opiate addiction ([facility] V24, [facility] V28) 02/2025 Overview (09/18/2024): pain meds (not prescribed) Opioid dependence in remission ([facility] V24, [facility] V28) 05/20/2018 Back spasm 02/03/2017 Humeral fracture 11/28/2013 Overview (09/18/2024): R; at the greater tuberosity Overweight 10/09/2013 Eczema 07/29/2011 Anxiety 07/03/2011 Depression 07/03/2011 Sleep disorder 07/03/2011 Acne 10/03/2008 Tobacco use disorder 10/03/2008 Encounters Date Type Department Care Team Description 06/05/2025 8:00 AM EDT Office Visit Adult Medicine [address] [phone] Iris Samano PA Routine general medical examination at a health care facility (Primary Dx); Tobacco use disorder; GARRETT III (cervical intraepithelial neoplasia III); Screening for cardiovascular condition; Screening for HIV (human immunodeficiency virus); Need for hepatitis C screening test; Screen for STD (sexually transmitted disease) 05/30/2025 11:30 AM EDT Office Visit Adult Medicine [address] [phone] Marguerite Ellison PA LOC (loss of consciousness) ([facility] V24, [facility] V28) (Primary Dx); Alcoholic intoxication with complication ([facility] V24); Anemia, unspecified type; Decreased GFR; Hypernatremia; Elevated LFTs; Moderate episode of recurrent major depressive disorder ([facility] V24, [facility] V28); Anxiety; Opioid dependence in remission ([facility] V24, [facility] V28); Need for prophylactic vaccination and inoculation against influenza; Vasovagal episode 05/30/2025 Telephone Adult Medicine [address] [phone] Marguerite Ellison PA 05/21/2025 Telephone Adult Medicine [address] [phone] Natacha Norris MD 04/17/2025 2:23 PM EDT - 04/17/2025 11:59 PM EDT Hospital Encounter [address] [phone] Bilateral bunions Discharge Disposition: Home or Self Care 04/17/2025 1:30 PM EDT Office Visit Adult Medicine [address] [phone] Iris Samano PA Bilateral bunions (Primary Dx); Numbness of left foot; Eustachian tube dysfunction, bilateral; Moderate episode of recurrent major depressive disorder ([facility] V24, [facility] V28); Screening for depression; Encounter for screening involving social determinants of health (SDoH); Encounter for screening mammogram for malignant neoplasm of breast from Last 3 Months Immunizations Immunization Administration Dates Next Due DTP 01/11/1990,,03/13/1985,01/11,1984 Hepatitis B (Imyoimg-T-Pkown , Recombivax HB-Adult) 19yo and older 01/21/2000,08/20/1999,07/16/1999 Influenza Quadravalent, MDCK , 0.5ml, preservative free (Flucelvax) 6mo and older 05/20/2018,07/21/2016 Influenza trivalent, MDCK, 0 .5mL, preservative free (Flucelvax) 6mo and older 05/30/2025 Influenza trivalent, with pr eservative (Fluzone; Afluria) 6mo and older 09/04/2014,07/03/2011 MMR, measles mumps and rubel la Live (Priorix; M-M-R II) 12mo and older 04/13/1997,02/11/1986 Meningococcal Polysaccharide 05/03/2003 OPV 01/11/1990, 6,01/11/1985,11/11 Td Tetanus diptheria (Tdvax) 7yo and older 10/13/2007,01/21/2000 Tdap Tetanus diptheria acell ular pertussis (Boostrix; Adacel) 7yo and older 05/12/2022,09/04/2014 Varicella live (Varivax) 12m o and older 02/11/1990 Surgical History Surgery Date Site/Laterality Comments FINGER SURGERY 09/13/2012 - 09/12/2013 [place] DRAINAGE FINGER ABSCESS SIMPLE NASAL SEPTUM SURGERY 09/13/2012 - 09/12/2013 Bilateral Domingo Samayoa Medical History Medical History Date Comments Meningitis spinal 08/1985 DX:Meningitis spinal Otitis DX:Otitis Varicella DX:Varicella GARRETT III (cervical intraepith elial neoplasia III) 12/21 DX:GARRETT III (cervical intraep ithelial neoplasia III); COMMENT: GARRETT II - III; Dr. Blank Opiate addiction ([facility] V2 4, [facility] V28) DX:Opiate addiction ([facility]); C OMMENT: pain meds (not prescribed) Tobacco use disorder DX:Tobacco use disorder Anxiety 07/03/2011 DX:Anxiety Depression 07/03/2011 DX:Depression Eczema 07/29/2011 DX:Eczema Humeral fracture 11/28/2013 DX:Humeral frac ture; COMMENT: R; at the greater tuberosity Family History Medical History Relation Name Comments Stroke Father no residual eff ects Coronary artery disease Maternal Grandfather Breast cancer Maternal Grandmother Alzheimer's disease Mother Alzheimer's disease Paternal Grandfather No Known Problems Paternal Grandmother No Known Problems Sister 1 No Known Problems Sister 2 blood diso rder unknown Colon cancer Neg Hx Diabetes Neg Hx Ovarian cancer Neg Hx Prostate cancer Neg Hx Relation Name Status Comments Father Alive Maternal Grandfather (Age 70) Maternal Grandmother (Age 58) Mother Alive Paternal Grandfather Paternal Grandmother Alive Sister 1 Alive Sister 2 Alive Social History Tobacco Use Types Packs/Day Years Used Date Smoking Tobacco: Every Day Cigarettes Smokeless Tobacco: Never Alcohol Use Standard Drinks/Week Comments Yes 3 (1 standard drink = 0.6 oz pur e alcohol) social use, once a week Housing Instability Answer Date Recorde d Are [...] care for your loved ones. For example, director of early childhood or elderly care for an older adult? [...] Date Recorded What is your living situation? Unrecognized valu e 04/17/2025 Comments No Sex and Gender Information Value Date Recorded Sex Assigned at Not on file Legal Sex Female 7:48 AM EST Gender Identity Not on file Sexual Orientation Not on file Obstetrics History Last Filed Vital Signs Vital Sign Reading Time Taken Comments Blood Pressure 112/67 06/05/2025 8:08 AM EDT Pulse 86 06/05/2025 8:08 AM EDT Temperature 36.2 C (97.2 F) 06/05/2025 8:08 AM EDT Respiratory Rate 14 06/05/2025 8:08 AM EDT Oxygen Saturation 98% 06/05/2025 8:08 AM EDT Inhaled Oxygen Concentration - - Weight 57.6 kg (127 lb) 06/05/2025 8:08 AM EDT Height 162.6 cm (5' 4 ) 06/05/2025 8:08 AM EDT Body Mass Index 21.8 06/05/2025 8:08 AM EDT Plan of Treatment Upcoming Encounters Date Type Department Care Team (Late st Contact Info) Description 07/24/2025 3:15 PM EST Consult Orthopedic Surgery - [address] [phone] Jasper Darby, DPM [address] [place] [phone] 06/06/2026 3:00 PM EDT Office Visit Adult Medicine [address] [phone] Iris Samano PA [address] [place] [address] Health Maintenance Due Date Last Done Comments Breast Cancer Screening 1984 HPV Vaccines (1 - 3-dose SCDM series) 2011 Cervical Cancer Screening: Pap Smear 11/03/2019 11/03/2016 Cholesterol Screening (Lipid Panel) 08/22/2022 05/06/2016 HIV Screening 08/22/2022 Hepatitis C Screening 08/22/2022 Social Influencers of Health Screening 04/17/2026 04/17/2025 DTaP,Tdap,and Td Vaccines (10 - Td or Tdap) 05/12/2032 05/12/2022, 09/04/2014, 10/13/2007, Additional history exists Pneumococcal Vaccine: Pediatrics (0 to 5 Years) and At-Risk Patients (6 to 49 Years) (1 of 2 - PCV) 2034 Postponed from 2003 (Not clinically appropriate to address at this time) RSV Immunization Adult Patients (1 - 1-dose 75+ series) 2059 IPV Vaccines Completed 01/11/1990, 10/0 09/1985, 01/11/1985, Additional history exists Varicella Vaccines Aged Out 02/11/1990 No longer eligible based on patient's age to complete this topic MMR Vaccines Completed 04/13/1997, 02/11/1986 Hepatitis B Vaccines Completed 01/21/2000, 08/20/1999, 07/16/1999 Meningococcal ACWY Vaccine Aged Out 05/03/2003 N o longer eligible based on patient's age to complete this topic COVID-19 Vaccine Discontinued 09/04/2021, , 01/04/2021 Depression Screening Completed 04/17/2025 Influenza Vaccine Completed 05/30/2025, , 07/21/2016, Additional history exists HIB Vaccines Aged Out No longer eligi ble based on patient's age to complete this topic Hepatitis A Vaccines Discontinued Meningococcal B Vaccine Aged Out No l onger eligible based on patient's age to complete this topic RSV Immunization Patients Under 20 months Aged Out No longer eligible based on patient's age to complete this topic Procedures Procedure Name Priority Date/Time Associated Diagnosis Comments XR FOOT 3+ VIEWS BILAT Routine 04/17/2025 2:39 PM EDT Bilateral bunions HM PAP SMEAR Routine 11/03/2016 LIPID PANEL Routine 05/06/2016 from Last 3 Months or Most Recently Relevant to Health Maintenance Results * XR Foot 3+ Views bilat (04/17/2025 2:39 PM EDT) Anatomical Region Laterality Modality Lower Extremities, Foot Bilateral Radiogra phic Imaging 04/17/2025 9:52 PM EDT Impressions 04/17/2025 9:56 PM EDT Mild bilateral hallux valgus deformities with probable soft tissue bunions. Minimal degenerative changes at the first MTP joints. POS - [id number] -------- FINAL REPORT -------- Dictated By: Jane Robledo Dictated Date: 04/17/2025 21:52 ET Assigned Physician: Jane Robledo Reviewed and Electronically Signed By: Jane Robledo Signed Date: 04/17/2025 21:56 ET Workstation ID: [id number] Transcribed By: Self Edit Transcribed Date: 04/17/2025 [...] at the first MTP joints. POS - [id number] -------- FINAL REPORT -------- Dictated By: Jane Robledo Dictated Date: 04/17/2025 21:52 ET Assigned Physician: Jane Robledo Reviewed and Electronically Signed By: Jane Robledo Signed Date: 04/17/2025 21:56 ET Workstation ID: [id number] Transcribed By: Self Edit Transcribed Date: 04/17/2025 21:52 ET us Iris GARCIA IMG XR PROCEDURES Final Result * Hm Pap Smear (11/03/2016) HM Pap smear No Interpretation , Abstracted Historical Provider HEALTH MAINTENANCE Final Result * Lipid panel (05/06/2016) LDL/HDL Ratio 2 0 - 4 Triglycerides 69 0 - 150 mg/dL Cholesterol 186 0 - 200 mg/dL HDL 90 >=40 mg/dL LDL Cholesterol 82 0 - 100 mg/dL Blood Venous blood specimen / Unknown Historical Provider LAB BLOOD ORDERABLES Rosa l Result from Last 3 Months or Most Recently Relevant to Health Maintenance Insurance [facility] Care Teams Digital Forensics Investigator Relationship Specialty Start Date End Date Natacha Still MD [address] [place] [phone] PCP - General Internal Medicine 11/13/24
== END 2025-07-17 17:16 | disposition home or self-care (01) ==
LOC: HO.HCC 14:33
PROVIDERS: Visit Provider Clinical Nurse Specialist Psychiatric/Mental Health
DX: F10.90 Alcohol use, unspecified, uncomplicated (principal)
CPT/HCPCS: 99203

== ENCOUNTER → 2025-07-17 14:33 | Outpatient (BNVA) | payer BC, SELFPAY | PROVIDERS: Visit Provider Clinical Nurse Specialist Psychiatric/Mental Health | DX: F10.20 Alcohol dependence, uncomplicated (principal) | CPT/HCPCS: 80307 ==

== ENCOUNTER 2025-07-31 14:26 | Outpatient (AMB) | payer BC, SELFPAY ==
[2025-07-31 14:36] VITALS: BP 116/60; PULSE 66; O2SAT 98
--- NOTE | 2025-07-31 14:36 | MHC.OFFVIS ---
Vital Signs 07/31/25 14:36 BP 116/60 Pulse 66 Pulse Oximetry (%) 98 Intake Visit Reasons: MAT Allergies vancomycin Allergy (Intermediate, Verified 07/31/25 14:37) Anaphylaxis HPI Comments Details: A 39-year-old female presents for a follow-up visit r/t AUD in early remission with naltrexone. Denies use of opiates, alcohol, and other substances. Engages in conversation re: feeling emotional due to a required court case appearance tomorrow morning, during the visit begins to cry and states there is a possibility I may go to prison tomorrow. T/w assessed safety and patient denies suicidal and homicidal ideation, plan, or intent at present time of visit. [facility] Medical History Eczema Deviated septum No known health problems Substance abuse Social History Household Members: Other Household Members Other:: One dog and two cats Housing: Condominium Comment: DC TBD Patient Tobacco Use Status: Current everyday Tobacco user Tobacco use type: Cigarette Substance Use Type: Marijuana service: No Current occupational status: employed Review of Systems Const All systems reviewed & are unremarkable except as noted in HPI and below Physical Exam Vital Signs: Last Vital Signs Pulse 66 07/31/25 14:36 BP 116/60 07/31/25 14:36 Pulse Ox 98 07/31/25 14:36 Const General: cooperative Assessment & Plan Assessment & Plan (1) Alcohol use disorder: Code(s): F10.90 - Alcohol use, unspecified, uncomplicated Category: Medical Plan The plan of care is to continue with naltrexone 50 mg, thiamine 100 mg, folic acid 1 mg daily. Follow-up with mental health therapist today at 3:00 pm for scheduled session. Call 911, crisis, or go to nearest emergency department if suicidal and/or homicidal ideations emerge. Follow-up with [facility] in 1 month or sooner if needed. Medications: Changed From naltrexone Take 1/2 for 3 days then one tablet daily 50 mg PO DAILY 30 days 30 tabs 0RF To naltrexone Take 1 tablet daily 50 mg PO DAILY 30 tabs 1RF 30 days Patient Instructions: - Continue with naltrexone tablets 50 mg, thiamine, and folic acid as prescribed. - Follow-up with mental health therapist for scheduled appointment today at 3:00 pm. - call 911, crisis, or go to the nearest emergency department if suicidal and back/or homicidal ideations emerge. - Follow-up in 1 month or sooner if needed. - Call with questions, concerns, or to report side effects/new onset of symptoms to [facility]. - The patient verbalized understanding and agreed with plan of care. Coding Level of Care Code Est Pt Level 3 (07329) Diagnoses Alcohol use disorder F10.90
--- OUTSIDE RECORDS SUMMARY | 2025-08-01 11:42 | XMS_ITS | Clinical Summary ---
Author Organization [address] Address [address] [place] [phone] Phone Care Team Providers Care Blender Conveyor Operator Name Role Phone Natacha Still MD Primary [...] II - III; Dr. Blank Opiate addiction ([facility] V24, [facility] V28) 02/2025 Overview (09/18/2024): pain meds (not prescribed) Opioid dependence in remission [place] [place] [facility] V28) 05/20/2018 Back spasm 02/03/2017 Humeral fracture 11/28/2013 Overview (09/18/2024): R; at the greater tuberosity Overweight 10/09/2013 Eczema 07/29/2011 Anxiety 07/03/2011 Depression 07/03/2011 Sleep disorder 07/03/2011 Acne 10/03/2008 Tobacco use disorder 10/03/2008 Encounters Date Type Department Care Team Description 07/24/2025 3:15 PM EST Consult Orthopedic Surgery [address] [phone] Jasper Darby, DPM Acquired hallux valgus of left foot (Primary Dx); Acquired hallux valgus of right foot 06/05/2025 8:00 AM EDT Office Visit Adult Medicine [address] [phone] Iris Samano PA Routine general medical examination at a health care facility (Primary Dx); Tobacco use disorder; GARRETT III (cervical intraepithelial neoplasia III); Screening for cardiovascular condition; Screening for HIV (human immunodeficiency virus); Need for hepatitis C screening test; Screen for STD (sexually transmitted disease) 05/30/2025 11:30 AM EDT Office Visit Adult [address] [phone] Marguerite Ellison PA LOC (loss of consciousness) ([facility] V24, [facility] V28) (Primary Dx); Alcoholic intoxication with complication ([facility] V24); Anemia, unspecified type; Decreased GFR; Hypernatremia; Elevated LFTs; Moderate episode of recurrent major depressive disorder ([facility] V24, [facility] V28); Anxiety; Opioid dependence in remission ([facility] V24, [facility] V28); Need for prophylactic vaccination and inoculation against influenza; Vasovagal episode 05/30/2025 Telephone Adult Medicine [address] [phone] Marguerite Ellison PA 05/21/2025 Telephone Adult Medicine [address] [phone] Natacha Still MD from Last 3 Months Immunizations Immunization Administration Dates Next Due DTP 01/11/1990,,03/13/1985,01/11,1984 Hepatitis B (Nrwhpmb-O-Yyqei , Recombivax HB-Adult) 19yo and older 01/21/2000,08/20/1999,07/16/1999 [...] Site/Laterality Comments FINGER SURGERY 09/13/2012 - 09/12/2013 [place] DRAINAGE FINGER ABSCESS SIMPLE NASAL SEPTUM SURGERY 09/13/2012 - 09/12/2013 Bilateral Domingo Samayoa Medical History Medical History Date Comments Meningitis spinal 08/1985 DX:Meningitis spinal Otitis DX:Otitis Varicella DX:Varicella GARRETT III (cervical intraepith elial neoplasia III) 12/21 DX:GARRETT III (cervical intraep ithelial neoplasia III); COMMENT: GARRETT II - III; Dr. Blank Opiate addiction ([facility] V2 4, [facility] V28) DX:Opiate addiction ([facility]); C OMMENT: pain meds (not prescribed) [...] do you feel lonely or isolated from ose around you? Never 04/17/2025 Food Risk [...] for your loved ones. For example, director child development center or elderly care for an older adult? [...] Care Team (Late st Contact Info) Description 06/06/2026 3:00 PM EDT Office Visit Adult Medicine [facility] [address], [place] [phone] Iris Samano PA [address] [place], [place] Health Maintenance Due Date Last Done Comments [...] 75+ series) 2059 IPV Vaccines Completed 01/11/1990, 09/1985, 01/11/1985, Additional history exists Varicella Vaccines [...] Name Priority Date/Time Associated Diagnosis Comments PAP SMEAR Routine 11/03/2016 LIPID PANEL Routine 05/06/2016 from Last 3 Months or Most Recently Relevant to Health Maintenance Results * Pap Smear (11/03/2016) Pap smear No Interpretation , Abstracted Historical [...] Most Recently Relevant to Health Maintenance Insurance [facility] Care Teams Blender Conveyor Operator Relationship Specialty Start Date End Date Natacha Still MD [address] [place] [phone] PCP - General Internal Medicine 11/13/24
--- OUTSIDE RECORDS SUMMARY | 2025-08-01 11:43 | XMS_ITS | Clinical Summary ---
Author Organization [facility] Address [address] [place] [phone] Phone Care Team Providers Care Manager Interface Name Role Phone Bev Bolanos MD Primary [...] COVID-19 VACCINE ( season) 2025 01/30/2021, 01/02/2021 IPV VACCINES Completed 01/11/1990, 1009/1985, 01/11/1985, Additional history exists MENINGOCOCCAL VACCINES (ACWY) Aged [...] SEE NARRATIVE - 01/10/2021 12:17 [place] [address] Assistant Women'S Tennis Coach: Dorene Moreland MD REGIONAL CONTROLLER Cytology Report FINAL DIAGNOSIS A. PAP SMEAR [...] 52, 56, 58, 59, 66, 68) by [employer] On[employer] HR-HPV analysis. Clinical correlation is advised. This HPV test was performed at [facility], [address] [place] [address]. This test has been FDA approved for [facility]Path cervical cytology specimens. The accuracy and precision of this test for all other specimen sources has been verified in the Cytopathology Laboratory of the [facility] and has not been cleared or approved by the U.S. Food and Drug Administration. Clinical correlation is advised. CLINICAL HISTORY Date of Last Menstrual Period: 12-10-2020 Other Clinical Conditions: Screening Pap SPECIMEN SOURCE A: PAP SMEAR (SUREPATH) CE Patient Name: REKHA VILLAFANA : 1985 (Age: 35) Sex: F Institution: [facility] Location: [facility] Date of Collection: 01/03/2021 Date of Reported: 01/10/2021 12:17 Results to: Kevin Blank MD, BS Kevin Blank MD CYTOLOGY ORDERABLES Final Res ult SEE NARRATIVE from Last 3 Months or Most Recently Relevant to Health Maintenance [place] [address] [place] [address] [facility] NON NSPG PCP S[facility] [employer] SAFETY NET [place] [address] [facility] S[facility] [employer] SAFETY NET PARTIAL NON NSPG PCP S[facility] [employer] SAFETY NET [place] [place] [address] NON NSPG PCP S[facility] HEALTH SAFETY NET PARTIAL [address] [place], [place] [address]ENSE NON NSPG PCP S[facility] HEALTH SAFETY NET PARTIAL [facility] NON NSPG PCP S[facility] HEALTH SAFETY NET [place] [place] [address] NON NSPG PCP [facility] [address] HEALTH SAFETY NET PARTIAL [facility] NSPG PCP [facility] [address] SAFETY NET PARTIAL Care Teams Manager Interface Relationship Specialty Start Date End Date Bev Bolanos MD [address] [place] [phone] PCP - General 09/16/17 Additional Source Comments The information contained in this document represents components of the legal health record. It is not the complete legal health record.[facility]
== END 2025-07-31 15:04 | disposition home or self-care (01) ==
LOC: HO.HCC 14:26
PROVIDERS: Visit Provider Clinical Nurse Specialist Psychiatric/Mental Health
DX: F10.90 Alcohol use, unspecified, uncomplicated (principal)
CPT/HCPCS: 99213

== ENCOUNTER 2025-08-17 10:45 | Outpatient (RCR) | payer BC, SELFPAY ==
[2025-07-12 11:11] VITALS: BMI 20.9
--- NOTE | 2025-07-12 12:30 | PC.ADMIT ---
Patient is a 39 year old female who self referred to [facility] secondary to history of alcohol use, depression, and anxiety. Patient reports she has an upcoming court date tomorrow and has a lot of legal issues that she is dealing with and is feeling overwhelmed. Patient has a history of DUI and has lost her licence to drive. Reports she is riding a bike to get the the program. Patient reports she works for the [employer] and last worked yesterday as she is taking a leave of absence from work to work on her mental health. Patient reports she has been drinking daily for the past three years after a break up with her ex-boyfriend. She reports for the past few months she has cut down her alcohol use drinking 4 days a week instead of daily. She reports drinking beer and hard liquor anywhere from 2 shots to 8 drinks. She reports she does not drink while at work however when she gets home at 6pm she starts drinking alcohol. She denied history of alcohol withdrawal sxs. No current sxs of alcohol withdrawal. No tremulousness, no diaphoresis, no vomiting, no nausea, no headache, no AH, no VH. VS BP 128/78 P 76. Patient educated on the dangers of alcohol withdrawal and what symptoms to look out for and was advised to go to the ER if experiencing symptoms. Patient does not want to go to detox. Patient stated, I'm here because of my family . Patient identified supports stating, I have a friend Page and my dad is trying to be supportive and he doesn't understand addiction. Patient reports she is taking a leave of absence from work starting today. Stated she is going to bring in FMLA paperwork from work. Patient reports she has court tomorrow and asked for a letter for court stating that she is in this program. [facility] staff Niki is aware. I let patient know that Niki will be working with her on this. In regards to supports for alcohol use patient stated, We have a good program at work an [facility]. They set you up with a therapist and they gave me resources to do meetings online. Patient stated she is attending online meetings currently. Patient is interested in MAT and a trampoline team coach. I reached out to Mackenzie at [facility] for an appointment for Kiersten. Patient is alert and oriented x4. She is calm and cooperative. She presented with depressed mood and tearful affect at times. Patient denied SI currently. Asked patient if she was experiencing SI. Patient stated, Sometimes that it would be nice to jump off a bridge and not be here and not having to go through what I have to in the next three months . Patient denied any active plans or intention of killing herself. Patient stated, I have no balls and I don't like guns. Patient was given a copy of her safety plan if needed. Patient medications were updated with patient and patient's pharmacy. Patient stated she is not taking Buspar or Abilify as she felt she was on too many medications.
--- NOTE | 2025-07-12 13:32 | PC.NURSE ---
Appointment with the [facility] [address] on Monday 07/16 @ 1 pm- Office number [phone].
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
--- NOTE | 2025-07-18 12:43 | P.PNPSP_ITS ---
Subjective Subjective Date of Service: 07/18/25 Reason For Visit: depression Interim History: Patient was seen for an evaluation. [place] papers were filled [place]. She is hoping to return to a modified work since she does not have her license again on 07/30/2025. She met with the substance abuse team, [facility] yesterday and was put on naltrexone, folate and vitamin-D. Current medications were reviewed. No complaints or side effects. No SI. She appears to be less emotional and labile. No SI Review of Systems Review of Systems Yes all other systems are reviewed and are negative Mental Status Exam Mental Status Exam Narrative: In today's visit she is alert, oriented and pleasant. Normal speech. Good eye contact. Affect is appropriate and contained. No signs of psychosis. No delusions. No SI/HI. Cognitively intact. Judgment is intact Diagnostics Vital Signs (24Hr): BMI result Body Mass Index 20.9 Assessment & Plan Assessment & Plan (1) Major depression, recurrent: Status: Acute Code(s): F33.9 - Major depressive disorder, recurrent, unspecified (2) Substance abuse: Status: Acute Code(s): F19.10 - Other psychoactive substance abuse, uncomplicated Plan Continue current regimen and plans. Continue [facility] Certification I certify that partial hospital treatment is medically necessary due to the symptoms and problems resulting from the patient's mental illness and the failure to treat the patient at the partial hospital level of care would likely result in the patient requiring inpatient psychiatric care which could not be prevented at a less intensive level of care. Total time managing care of this patient today ____ minutes. Discharge Plan Discharge Attending provider: Priti Padilla Medications: No Action clonidine HCl 0.1 mg tablet 0.1 mg PO BEDTIME PRN (Reason: Anxiety) sertraline 100 mg Tablet 100 mg PO DAILY Patient Comments: Patient reports Sertraline was increased from 50 mg to 100 mg daily. Rx Instructions: Last filled 07/12/25 acyclovir 800 mg tablet 400 mg PO DAILY Rx Instructions: TAKE 1/2 A TABLET, ORALLY, TWICE A DAY (MORNING AND EVENING) FOR 90 DAYS lorazepam 0.5 mg tablet 0.5 mg PO TID bupropion HCl 300 mg tablet extended release 24 hr 300 mg PO DAILY naltrexone 50 mg tablet 50 mg PO DAILY 30 Days Qty: 30 0RF Rx Instructions: Take 1/2 for 3 days then one tablet daily folic acid 1 mg tablet 1 mg PO DAILY 30 Days Qty: 30 3RF Rx Instructions: Take 1 tablet daily thiamine mononitrate (vit B1) 100 mg tablet 100 mg PO DAILY 30 Days Qty: 30 3RF Rx Instructions: Take 1 tablet daily Print Language: Tuvaluan
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
[2025-07-27 14:50] LABS: Cannabinoid Screen Urine POSITIVE (Not Detect)
--- NOTE | 2025-08-02 22:57 | HO.PHPPROGNO ---
Subjective Subjective Date of Service: 08/02/25 Reason For Visit: depression Interim History: Patient seen for follow-up. Started on ABilify, denies any issues. Continues mood lability/reactivity, easily tearful, although patient belives this has let up some. Sleeping okay . ANxiety is still severe and unmanageable, struggling with chronic focus and attentional deficits. Passive SI, transient. No plans to harm self or others. SHe is open to extneding her stay at [facility]. Medication Compliance: Yes Side effects from medications: No Attending Groups: Yes Review of Systems Review of Systems Yes all other systems are reviewed and are negative Mental Status Exam Mental Status Exam Narrative: In today's visit she is alert, oriented and pleasant. Normal speech. Good eye contact. Mood less depressed,less labile. Affect reactive, full range, moments of congruent tearfulness, brightening. No signs of psychosis. Cognitively is intact. Judgment is intact. She denies any SI/HI upon inquiry. She moves all limbs. No gait abnormalities. Diagnostics Vital Signs (24Hr): BMI result Body Mass Index 20.9 Assessment & Plan Assessment & Plan (1) Major depression, recurrent: Status: Acute Code(s): F33.9 - Major depressive disorder, recurrent, unspecified (2) Substance abuse: Status: Acute Code(s): F19.10 - Other psychoactive substance abuse, uncomplicated (3) Alcohol use disorder: Status: Acute Code(s): F10.90 - Alcohol use, unspecified, uncomplicated (4) Other impulse disorders: Status: Acute Code(s): F63.89 - Other impulse disorders Assessment and Plan: r/o ADHD combined type Plan extend [facility] continue ABilify at 5 mg for 2 more days then see if 1.5 tablets (7.5 mg) tolerated continue Wellbutrin XL 450 mg qam continue sertraline 100 mg qd continue naltrexone 50 mg qhs continue clonidine 0.1 mg qhs continue to monitor Patient educated on: diagnosis, medication risk/benefits and substance abuse Informed Consent: understands Reason for contiued partial hosp. stay Substantial Risk for: inability to function, rapid decompensation and med/psych decompensation Certification I certify that partial hospital treatment is medically necessary due to the symptoms and problems resulting from the patient's mental illness and the failure to treat the patient at the partial hospital level of care would likely result in the patient requiring inpatient psychiatric care which could not be prevented at a less intensive level of care. Total time managing care of this patient today __30__ minutes. Discharge Plan Discharge Attending provider: Priti Padilla Medications: New nicotine 14 mg/24 hr patch 24 hour 1 patch transdermal DAILY Qty: 30 0RF atomoxetine 25 mg capsule 50 mg PO QAM Qty: 30 0RF disulfiram 250 mg tablet 250 mg PO DAILY Qty: 30 0RF nicotine 21 mg/24 hr patch 24 hour 1 patch transdermal DAILY Qty: 28 0RF Rx Instructions: apply to arm topically daily in AM, remove every night nicotine 14 mg/24 hr patch 24 hour 1 patch transdermal DAILY Qty: 28 0RF Rx Instructions: apply to arm topically daily in AM, remove every night once complete 21 mg patches, start 14 mg patches nicotine 7 mg/24 hr patch 24 hour 1 patch transdermal DAILY Qty: 28 0RF Rx Instructions: apply to arm topically daily in AM, remove every night once complete 14 mg patches, start 7 mg patches aripiprazole 2 mg tablet 2 mg PO DAILY Qty: 30 0RF naloxone [Narcan] 4 mg/actuation spray,non-aerosol 1 spray intranasal Q2M Qty: 2 0RF Rx Instructions: spray 1 dose into ONE nostril; alternate nostrils w each dose until help arrives Continued acyclovir 800 mg tablet 400 mg PO DAILY Rx Instructions: TAKE 1/2 A TABLET, ORALLY, TWICE A DAY (MORNING AND EVENING) FOR 90 DAYS bupropion HCl 150 mg tablet extended release 24 hr 150 mg PO DAILY Rx Instructions: TAKE ONE TABLET BY MOUTH DAILY WITH 300MG TABLET bupropion HCl 300 mg tablet extended release 24 hr 300 mg PO DAILY Rx Instructions: Take with 150 mg tab of Wellbutrin. folic acid 1 mg tablet 1 mg PO DAILY 30 Days Qty: 30 3RF Rx Instructions: Take 1 tablet daily thiamine mononitrate (vit B1) 100 mg tablet 100 mg PO DAILY 30 Days Qty: 30 3RF Rx Instructions: Take 1 tablet daily Changed clonidine HCl 0.1 mg tablet 0.1 mg PO BID PRN (Reason: Anxiety) Qty: 45 0RF aripiprazole 5 mg tablet 5 mg PO BID Qty: 60 0RF sertraline 100 mg Tablet 150 mg PO DAILY Qty: 45 0RF Patient Comments: Patient reports Sertraline was increased from 50 mg to 100 mg daily. Rx Instructions: Last filled 07/12/25 Discontinued lorazepam 0.5 mg tablet 0.5 mg PO TID No Action naltrexone 50 mg tablet 50 mg PO DAILY 30 Days Qty: 30 3RF Rx Instructions: Take 1 tablet daily Stand Alone Forms: Patient Portal Discharge page Patient Education: Disulfiram (By mouth) (Antabuse), ADHD in Adults (ED), Depression (DC), Anxiety (ED), Alcohol Use Disorder (ED) Print Language: Turkmen
--- NOTE | 2025-08-08 20:32 | HO.PHPPROGNO ---
Subjective Subjective Date of Service: 08/06/25 Reason For Visit: depression Interim History: Patient seen for follow-up I am okay, feeling still low, but not instantly crying as much... Feel I have more control Impulse control a little better, has not had a drink in interim, no benzos. Cravings not too bad has been trying to utilize coping strategies. Sleep is intact. Low energy, denies any change. Dperession severity improved from 06/22 to a -04/22. Mood more stable from 10/23 to 12/21. COgnnitive anxiety improved from 04/22 to 02/20 in severity. Denies any SI or thoughts of SIB. Denies AI or HI. No AVH. Medication Compliance: Yes Side effects from medications: No Attending Groups: Yes Review of Systems Acute medical concerns: No Review of Systems Review of Systems Yes all other systems are reviewed and are negative Mental Status Exam Mental Status Exam Narrative: In today's visit she is alert, oriented and pleasant. Normal speech. Good eye contact. Mood less depressed,less labile. Affect reactive, full range, moments of congruent brightening. No signs of psychosis. Cognitively is intact. Judgment is intact. She denies any SI/HI upon inquiry. She moves all limbs. No gait abnormalities. Diagnostics Vital Signs (24Hr): BMI result Body Mass Index 20.9 Assessment & Plan Assessment & Plan (1) Major depression, recurrent: Status: Acute Code(s): F33.9 - Major depressive disorder, recurrent, unspecified (2) Alcohol use disorder: Status: Acute Code(s): F10.90 - Alcohol use, unspecified, uncomplicated (3) Other impulse disorders: Status: Acute Code(s): F63.89 - Other impulse disorders Assessment and Plan: r/o ADHD combined type Plan extend [facility] titrate ABilify 10 mg/d (split 5 mg BID) continue Wellbutrin XL 450 mg qam continue sertraline 100 mg qd continue naltrexone 50 mg qhs continue clonidine 0.1 mg qhs continue to monitor Patient educated on: diagnosis, medication risk/benefits and substance abuse Informed Consent: understands Reason for contiued partial hosp. stay Substantial Risk for: inability to function and med/psych decompensation Certification I certify that partial hospital treatment is medically necessary due to the symptoms and problems resulting from the patient's mental illness and the failure to treat the patient at the partial hospital level of care would likely result in the patient requiring inpatient psychiatric care which could not be prevented at a less intensive level of care. Total time managing care of this patient today __30__ minutes. Discharge Plan Discharge Attending provider: Priti Padilla Medications: New nicotine 14 mg/24 hr patch 24 hour 1 patch transdermal DAILY Qty: 30 0RF atomoxetine 25 mg capsule 50 mg PO QAM Qty: 30 0RF disulfiram 250 mg tablet 250 mg PO DAILY Qty: 30 0RF nicotine 21 mg/24 hr patch 24 hour 1 patch transdermal DAILY Qty: 28 0RF Rx Instructions: apply to arm topically daily in AM, remove every night nicotine 14 mg/24 hr patch 24 hour 1 patch transdermal DAILY Qty: 28 0RF Rx Instructions: apply to arm topically daily in AM, remove every night once complete 21 mg patches, start 14 mg patches nicotine 7 mg/24 hr patch 24 hour 1 patch transdermal DAILY Qty: 28 0RF Rx Instructions: apply to arm topically daily in AM, remove every night once complete 14 mg patches, start 7 mg patches aripiprazole 2 mg tablet 2 mg PO DAILY Qty: 30 0RF naloxone [Narcan] 4 mg/actuation spray,non-aerosol 1 spray intranasal Q2M Qty: 2 0RF Rx Instructions: spray 1 dose into ONE nostril; alternate nostrils w each dose until help arrives Continued acyclovir 800 mg tablet 400 mg PO DAILY Rx Instructions: TAKE 1/2 A TABLET, ORALLY, TWICE A DAY (MORNING AND EVENING) FOR 90 DAYS bupropion HCl 150 mg tablet extended release 24 hr 150 mg PO DAILY Rx Instructions: TAKE ONE TABLET BY MOUTH DAILY WITH 300MG TABLET bupropion HCl 300 mg tablet extended release 24 hr 300 mg PO DAILY Rx Instructions: Take with 150 mg tab of Wellbutrin. folic acid 1 mg tablet 1 mg PO DAILY 30 Days Qty: 30 3RF Rx Instructions: Take 1 tablet daily thiamine mononitrate (vit B1) 100 mg tablet 100 mg PO DAILY 30 Days Qty: 30 3RF Rx Instructions: Take 1 tablet daily Changed clonidine HCl 0.1 mg tablet 0.1 mg PO BID PRN (Reason: Anxiety) Qty: 45 0RF aripiprazole 5 mg tablet 5 mg PO BID Qty: 60 0RF sertraline 100 mg Tablet 150 mg PO DAILY Qty: 45 0RF Patient Comments: Patient reports Sertraline was increased from 50 mg to 100 mg daily. Rx Instructions: Last filled 07/12/25 Discontinued lorazepam 0.5 mg tablet 0.5 mg PO TID No Action naltrexone 50 mg tablet 50 mg PO DAILY 30 Days Qty: 30 3RF Rx Instructions: Take 1 tablet daily Stand Alone Forms: Patient Portal Discharge page Patient Education: Disulfiram (By mouth) (Antabuse), ADHD in Adults (ED), Depression (DC), Anxiety (ED), Alcohol Use Disorder (ED) Print Language: Hungarian
--- NOTE | 2025-08-15 20:27 | HO.PHPPROGNO ---
Subjective Subjective Date of Service: 08/14/25 Reason For Visit: depression Interim History: Patient was seen for an evaluation. [facility] paperwork dates amended. Reports doing better overall. Mood is still low but less depressed. She notices she has much better emotional regulation, less inappropriate tearfulness. Rates depression severity improved from 9/10 to 7/10 and mood stability from a 2/10 to a 6/10. Tolerating ABilify, started on 5 mg last night (had mistakenly started at 4 mg but then ran out over holiday break x 2 or 3 days). Just picked Abilify up yesterday and started back on it. She mentions that she could tell that her emotionality returned and was more dysregulated over the past few days off of it. Still struggling with ADHD symptoms, which makes her nervous about returning to work. She recently started on ketamine for depression. ANxiety is high, but mostly related to managing her stress and task-related issues. She denies any relapses in interim. She is open to starting on Strattera. We discuss signs/symptoms of serotonin syndrome, as a potential issue seeing as she is on sertraline 150 mg. Nonetheless she is eager to start Strattera and if helpful would be open to lowering the dose of sertraline. She is also on 450 mg of Wellbutrin, I had offered switching to SR which may better address ADHD issues, however patient preferred starting Strattera. Sleep, appetite intact. Denies any SI, HI. No AH or VH issues. Review of Systems Review of Systems Yes all other systems are reviewed and are negative Mental Status Exam Mental Status Exam Narrative: In today's visit she is alert, oriented and pleasant. Normal speech. Good eye contact. Mood less depressed,less labile. Affect reactive, full range, moments of congruent tearfulness, brightening. No signs of psychosis. Cognitively is intact. Judgment is intact. She denies any SI/HI upon inquiry. She moves all limbs. No gait abnormalities. Diagnostics Vital Signs (24Hr): BMI result Body Mass Index 20.9 Assessment & Plan Assessment & Plan (1) MDD (major depressive disorder), recurrent severe, without psychosis: Status: Acute Code(s): F33.2 - Major depressive disorder, recurrent severe without psychotic features (2) Other specified episodic mood disorder: Status: Acute Code(s): F39 - Unspecified mood [affective] disorder (3) Alcohol use disorder: Status: Acute Code(s): F10.90 - Alcohol use, unspecified, uncomplicated (4) Substance abuse: Status: Acute Code(s): F19.10 - Other psychoactive substance abuse, uncomplicated (5) ADHD (attention deficit hyperactivity disorder), combined type: Status: Acute Code(s): F90.2 - Attention-deficit hyperactivity disorder, combined type (6) Major depression, recurrent: Status: Acute Code(s): F33.9 - Major depressive disorder, recurrent, unspecified (7) Other impulse disorders: Status: Acute Code(s): F63.89 - Other impulse disorders Assessment and Plan: r/o ADHD combined type Plan extend PHP start Strattera 25 mg qam (if tolerated may increase to 50 mg/d after 2 days) increase ABilify to 7- 7.5 mg qhs continue Wellbutrin XL 450 mg qam continue sertraline 150 mg qd (consider lowering if s/s concerning for serotonin syndrome - patient aware, educated) continue naltrexone 50 mg qhs continue clonidine 0.1 mg qhs Patient educated on: diagnosis, medication risk/benefits and substance abuse Informed Consent: understands Reason for contiued partial hosp. stay Substantial Risk for: inability to function and med/psych decompensation Certification I certify that partial hospital treatment is medically necessary due to the symptoms and problems resulting from the patient's mental illness and the failure to treat the patient at the partial hospital level of care would likely result in the patient requiring inpatient psychiatric care which could not be prevented at a less intensive level of care. Total time managing care of this patient today __40__ minutes. Discharge Plan Discharge Attending provider: Priti Padilla Medications: New nicotine 14 mg/24 hr patch 24 hour 1 patch transdermal DAILY Qty: 30 0RF atomoxetine 25 mg capsule 50 mg PO QAM Qty: 30 0RF disulfiram 250 mg tablet 250 mg PO DAILY Qty: 30 0RF nicotine 21 mg/24 hr patch 24 hour 1 patch transdermal DAILY Qty: 28 0RF Rx Instructions: apply to arm topically daily in AM, remove every night nicotine 14 mg/24 hr patch 24 hour 1 patch transdermal DAILY Qty: 28 0RF Rx Instructions: apply to arm topically daily in AM, remove every night once complete 21 mg patches, start 14 mg patches nicotine 7 mg/24 hr patch 24 hour 1 patch transdermal DAILY Qty: 28 0RF Rx Instructions: apply to arm topically daily in AM, remove every night once complete 14 mg patches, start 7 mg patches aripiprazole 2 mg tablet 2 mg PO DAILY Qty: 30 0RF naloxone [Narcan] 4 mg/actuation spray,non-aerosol 1 spray intranasal Q2M Qty: 2 0RF Rx Instructions: spray 1 dose into ONE nostril; alternate nostrils w each dose until help arrives Continued acyclovir 800 mg tablet 400 mg PO DAILY Rx Instructions: TAKE 1/2 A TABLET, ORALLY, TWICE A DAY (MORNING AND EVENING) FOR 90 DAYS bupropion HCl 150 mg tablet extended release 24 hr 150 mg PO DAILY Rx Instructions: TAKE ONE TABLET BY MOUTH DAILY WITH 300MG TABLET bupropion HCl 300 mg tablet extended release 24 hr 300 mg PO DAILY Rx Instructions: Take with 150 mg tab of Wellbutrin. folic acid 1 mg tablet 1 mg PO DAILY 30 Days Qty: 30 3RF Rx Instructions: Take 1 tablet daily thiamine mononitrate (vit B1) 100 mg tablet 100 mg PO DAILY 30 Days Qty: 30 3RF Rx Instructions: Take 1 tablet daily Changed clonidine HCl 0.1 mg tablet 0.1 mg PO BID PRN (Reason: Anxiety) Qty: 45 0RF aripiprazole 5 mg tablet 5 mg PO BID Qty: 60 0RF sertraline 100 mg Tablet 150 mg PO DAILY Qty: 45 0RF Patient Comments: Patient reports Sertraline was increased from 50 mg to 100 mg daily. Rx Instructions: Last filled 07/12/25 Discontinued lorazepam 0.5 mg tablet 0.5 mg PO TID No Action naltrexone 50 mg tablet 50 mg PO DAILY 30 Days Qty: 30 3RF Rx Instructions: Take 1 tablet daily Stand Alone Forms: Patient Portal Discharge page Patient Education: Disulfiram (By mouth) (Antabuse), ADHD in Adults (ED), Depression (DC), Anxiety (ED), Alcohol Use Disorder (ED) Print Language: Greek
--- NOTE | 2025-08-17 15:52 | P.PNPSP_ITS ---
Subjective Subjective Date of Service: 08/17/25 Reason For Visit: depression Interim History: Patient seen for follow-up, anticipating discharge at the end of program today.? I dont which thing is helping, the meds, the ketamine, the groups, but Im starting to notice a difference . Mood is okay today. Depression severity has improved from a 10/10 to a 4/10 since being here, and notices change more so in past few days. Mood stability has improved from a 2/10 to 7/10. She has had 4 ketamine sessions so far through [facility] , meets with the provider online, is checked in, and is guided through the process. You get to do it in the comfort of your own home (with peer monitoring). She has 2 more sessions to go. Reports no acute issues or concerns. Medication compliant, medications well- tolerated. Denies any adverse effects.?She was seen at [facility] on Wednesday, next appointment in 3 weeks. CLean date is . Denies alcohol cravings which she attributes to being naltrexone. BZD cravings still there but manageable and she just tries to stay busy. Mood is stable.? Denies any hopelessness or SI. Denies thoughts of harming self or others at this time. Denies any aggressive ideation or HI. Denies any paranoia or AH or VH. Sleep, appetite, energy stable. Medication Compliance: Yes Side effects from medications: No Attending Groups: Yes Review of Systems Acute medical concerns: No Review of Systems Review of Systems Yes all other systems are reviewed and are negative Mental Status Exam Mental Status Exam Narrative: Alert, oriented, in no acute distress. Calm, cooperative. Mood anxious, but stable, affect appropriate. Speech normal. Thought process linear, coherent, more goal-directed. Thought content related to stressors, future-oriented, denies any helplessness, hopelessness or SI.? No aggressive ideation or HI. No paranoia or delusional content elicited. No evidence of psychosis. Insight and judgment fair-good. Diagnostics Vital Signs (24Hr): BMI result Body Mass Index 20.9 Assessment & Plan Assessment & Plan (1) MDD (major depressive disorder), recurrent severe, without psychosis: Status: Acute Code(s): F33.2 - Major depressive disorder, recurrent severe without psychotic features (2) Other specified episodic mood disorder: Status: Acute Code(s): F39 - Unspecified mood [affective] disorder (3) Alcohol use disorder: Status: Acute Code(s): F10.90 - Alcohol use, unspecified, uncomplicated (4) Substance abuse: Status: Acute Code(s): F19.10 - Other psychoactive substance abuse, uncomplicated (5) ADHD (attention deficit hyperactivity disorder), combined type: Status: Acute Code(s): F90.2 - Attention-deficit hyperactivity disorder, combined type (6) Major depression, recurrent: Status: Acute Code(s): F33.9 - Major depressive disorder, recurrent, unspecified (7) Other impulse disorders: Status: Acute Code(s): F63.89 - Other impulse disorders Assessment and Plan: r/o ADHD combined type Plan [facility]charge from [facility] Continue regular medications? Refills sent to pharmacy Will defer further medication management to outpatient provider Continue DONTAE treatment at [facility], next appointment on Wednesday *Safety plan reviewed *Discharge diagnoses, treatment course, discharge plan have been reviewed with patient (including medication regime, medication management, potential side effects) as well as treatment rationale were also revisited *Discharge paperwork signed and given to patient, copy sent for scanning to chart Patient educated on: diagnosis, medication risk/benefits and substance abuse Informed Consent: understands Reason for contiued partial hosp. stay Substantial Risk for: stable for discharge Certification I certify that partial hospital treatment is medically necessary due to the symptoms and problems resulting from the patient's mental illness and the failure to treat the patient at the partial hospital level of care would likely result in the patient requiring inpatient psychiatric care which could not be prevented at a less intensive level of care. Total time managing care of this patient today __30__ minutes. Discharge Plan Discharge Attending provider: Priti Padilla Medications: New nicotine 14 mg/24 hr patch 24 hour 1 patch transdermal DAILY Qty: 30 0RF atomoxetine 25 mg capsule 50 mg PO QAM Qty: 30 0RF disulfiram 250 mg tablet 250 mg PO DAILY Qty: 30 0RF nicotine 21 mg/24 hr patch 24 hour 1 patch transdermal DAILY Qty: 28 0RF Rx Instructions: apply to arm topically daily in AM, remove every night nicotine 14 mg/24 hr patch 24 hour 1 patch transdermal DAILY Qty: 28 0RF Rx Instructions: apply to arm topically daily in AM, remove every night once complete 21 mg patches, start 14 mg patches nicotine 7 mg/24 hr patch 24 hour 1 patch transdermal DAILY Qty: 28 0RF Rx Instructions: apply to arm topically daily in AM, remove every night once complete 14 mg patches, start 7 mg patches aripiprazole 2 mg tablet 2 mg PO DAILY Qty: 30 0RF naloxone [Narcan] 4 mg/actuation spray,non-aerosol 1 spray intranasal Q2M Qty: 2 0RF Rx Instructions: spray 1 dose into ONE nostril; alternate nostrils w each dose until help arrives Continued acyclovir 800 mg tablet 400 mg PO DAILY Rx Instructions: TAKE 1/2 A TABLET, ORALLY, TWICE A DAY (MORNING AND EVENING) FOR 90 DAYS bupropion HCl 150 mg tablet extended release 24 hr 150 mg PO DAILY Rx Instructions: TAKE ONE TABLET BY MOUTH DAILY WITH 300MG TABLET bupropion HCl 300 mg tablet extended release 24 hr 300 mg PO DAILY Rx Instructions: Take with 150 mg tab of Wellbutrin. folic acid 1 mg tablet 1 mg PO DAILY 30 Days Qty: 30 3RF Rx Instructions: Take 1 tablet daily thiamine mononitrate (vit B1) 100 mg tablet 100 mg PO DAILY 30 Days Qty: 30 3RF Rx Instructions: Take 1 tablet daily Changed clonidine HCl 0.1 mg tablet 0.1 mg PO BID PRN (Reason: Anxiety) Qty: 45 0RF aripiprazole 5 mg tablet 5 mg PO BID Qty: 60 0RF sertraline 100 mg Tablet 150 mg PO DAILY Qty: 45 0RF Patient Comments: Patient reports Sertraline was increased from 50 mg to 100 mg daily. Rx Instructions: Last filled 07/12/25 Discontinued lorazepam 0.5 mg tablet 0.5 mg PO TID No Action naltrexone 50 mg tablet 50 mg PO DAILY 30 Days Qty: 30 3RF Rx Instructions: Take 1 tablet daily Stand Alone Forms: Patient Portal Discharge page Patient Education: Disulfiram (By mouth) (Antabuse), ADHD in Adults (ED), Depression (DC), Anxiety (ED), Alcohol Use Disorder (ED) Print Language: Upper Sorbian
== END 2025-08-17 23:59 | disposition home or self-care (01) ==
LOC: HO.PHPA 10:45
PROVIDERS: Psychiatry & Neurology Psychiatry; Visit Provider Psychiatry & Neurology Psychiatry
DX: F33.2 Major depressive disorder, recurrent severe without psychotic features (principal); F19.10 Other psychoactive substance abuse, uncomplicated; F10.90 Alcohol use, unspecified, uncomplicated; F63.89 Other impulse disorders; F39 Unspecified mood [affective] disorder; F90.2 Attention-deficit hyperactivity disorder, combined type; Z79.899 Other long term (current) drug therapy
CPT/HCPCS: 80307; 90791; 90853

== ENCOUNTER → 2025-08-17 14:39 | Outpatient (REF) | payer BC, SELFPAY ==
[2025-08-17 15:04] LABS: MANUAL DIFF FLAG NO
--- NOTE | 2025-08-17 15:11 | ECG_ITS ---
Test Reason : 5CHECK QTC Blood Pressure : */* mmHG Vent. Rate : 61 BPM Atrial Rate : 61 BPM P-R Int : 150 ms QRS Dur : 84 ms QT Int : 408 ms P-R-T Axes : 45 39 33 degrees QTcB Int : 410 ms Normal sinus rhythm Normal ECG No previous ECGs available Referred By: Priti Padilla Electronically Signed By: ROBIN ACEVES
[2025-08-17 15:33] LABS: Hematocrit 30.6 % (37.0-47.0); Hemoglobin 11.2 g/dl (12.0-16.0); Imm Gran Abs Auto 0.03 X10*3/uL (0.00-0.03); Imm Gran Pct Auto 0.5 % (0.0-0.4); Lymphocytes Absolute Auto 1.8 X10*3/uL (1.2-4.9); Mean Corpuscular HGB Conc 36.6 g/dl (31.0-35.0); Mean Corpuscular Hemoglobin 34.3 pg (27.0-33.0); Mean Corpuscular Volume 93.6 fL (80.0-98.0); NRBC Abs Auto 0.000 X10*3/uL (0.0-0.012); NRBC Pct Auto 0.0 /100WBC (0.0-0.2); Platelet Count 176 X10*3/uL (160-400); Red Blood Count 3.27 X10*6/uL (4.20-5.50); White Blood Count 6.2 X10*3/uL (4.8-10.8)
[2025-08-17 16:19] LABS: Erythrocyte Sedimentation Rate 8 MM/HR (0-20)
[2025-08-17 17:38] LABS: PTH Intact Intraoperative 57.9 pg/mL (8.7-77.1)
--- OUTSIDE RECORDS SUMMARY | 2025-08-17 18:47 | XMS_ITS | Clinical Summary ---
Author Organization [facility] Address [address] [place] [phone] Phone Care Team Providers Care Orange Grower Name Role Phone Bev Bolanos MD Primary [...] SEE NARRATIVE - 01/10/2021 12:17 [place] [address] Batting Machine Operator: Dorene Moreland MD BLOOD BANK ASSISTANT Cytology Report FINAL DIAGNOSIS A. PAP SMEAR [...] 56, 58, 59, 66, 68) by Edgar Mahnomen Onclarity HR-HPV analysis. Clinical correlation is advised. This HPV test was performed at [facility], [address] [place] [address]. This test has been FDA approved for SurePath cervical cytology specimens. The accuracy and precision of this test for all other specimen sources has been verified in the Cytopathology Laboratory of the [facility] and has not been cleared or approved by the U.S. Food and Drug Administration. Clinical correlation is advised. CLINICAL HISTORY Date of Last Menstrual Period: 12-10-2020 Other Clinical Conditions: Screening Pap SPECIMEN SOURCE A: PAP SMEAR (SUREPATH) CE Patient Name: REKHA VILLAFANA : 1985 (Age: 35) Sex: F Institution: [facility] Location: [facility] Date of Collection: 01/03/2021 Date of Reported: 01/10/2021 12:17 Results to: Kevin Blank MD, BS Kevin Blank MD CYTOLOGY ORDERABLES Final Res ult SEE NARRATIVE from Last 3 Months or Most Recently Relevant to Health Maintenance [place] [address] [place] [address] NON NSPG PCP [facility] [place] [address] [place] [address] NON NSPG PCP [facility] SAFETY NET PARTIAL [facility] NON NSPG PCP S[facility] Diagnostics SAFETY NET [place] [address] NON NSPG PCP S[facility] Diagn[facility] SAFETY NET PARTIAL [facility] NON NSPG PCP [facility] [facility] SAFET[facility] NET PARTIAL NON NSPG PCP S[facility] Diagn[facility] SAFETY [place] [address] NON NSPG PCP [facility] Diagnostics SAFETY NET PARTIAL NON NSPG PCP S[facility] Diagnostics [facility] [place] [place] [address] NON NSPG PCP [facility] SAF[facility] NET PARTIAL Care Teams Orange Grower Relationship Specialty Start Date End Date Bev Bolanos MD [address] [place] [address] PCP - General 09/16/17 Additional Source Comments The information contained in this document represents components of the legal health record. It is not the complete legal health record.[facility]
--- OUTSIDE RECORDS SUMMARY | 2025-08-17 18:47 | XMS_ITS | Clinical Summary ---
Author Organization [address] Address [address] [place] [phone] Phone Care Team Providers Care Cargo Vessel Stewardess Name Role Phone Natacha Still MD Primary [...] II - III; Dr. Blank Opiate addiction ([facility] V24, [facility] V28) 02/2025 Overview (09/18/2024): pain meds (not prescribed) Opioid dependence in remission ([facility] V24, [facility] V28) 05/20/2018 Back spasm 02/03/2017 Humeral fracture 11/28/2013 Overview (09/18/2024): R; at the greater tuberosity Overweight 10/09/2013 Eczema 07/29/2011 Anxiety 07/03/2011 Depression 07/03/2011 Sleep disorder 07/03/2011 Acne 10/03/2008 Tobacco use disorder 10/03/2008 Encounters Date Type Department Care Team Description 07/24/2025 3:15 PM EST Consult Orthopedic Surgery [address] [phone] Jasper Darby, DPM Acquired hallux valgus of left foot (Primary Dx); Acquired hallux valgus of right foot 06/05/2025 8:00 AM EDT Office Visit Adult Medicine [address] [phone] Iris Samano PA Routine general medical examination at a health care facility (Primary Dx); Tobacco use disorder; GARRETT III (cervical intraepithelial neoplasia III); Screening for cardiovascular condition; Screening for HIV (human immunodeficiency virus); Need for hepatitis C screening test; Screen for STD (sexually transmitted disease) 05/30/2025 11:30 AM EDT Office Visit Adult [address] [phone] Marguerite Ellison PA LOC (loss of consciousness) ([facility] V24, [facility] V28) (Primary Dx); Alcoholic intoxication with complication ([facility] V24); Anemia, unspecified type; Decreased GFR; Hypernatremia; Elevated LFTs; Moderate episode of recurrent major depressive disorder ([facility] V24, [facility] V28); Anxiety; Opioid dependence in remission ([facility] V24, [facility] V28); Need for prophylactic vaccination and inoculation against influenza; Vasovagal episode 05/30/2025 Telephone Adult Medicine [address] [phone] Marguerite Ellison PA 05/21/2025 Telephone Adult Medicine [address] [phone] Natacha Still MD from Last 3 Months Immunizations Immunization Administration Dates Next Due DTP 01/11/1990,,03/13/1985,01/11,1984 Hepatitis B (Adrtwyb-L-Awksc , Recombivax HB-Adult) 19yo and older 01/21/2000,08/20/1999,07/16/1999 [...] Site/Laterality Comments FINGER SURGERY 09/13/2012 - 09/12/2013 PA DRAINAGE FINGER ABSCESS SIMPLE NASAL SEPTUM SURGERY 09/13/2012 - 09/12/2013 Bilateral Domingo Samayoa Medical History Medical History Date Comments Meningitis spinal 08/1985 DX:Meningitis spinal Otitis DX:Otitis Varicella DX:Varicella GARRETT III (cervical intraepith elial neoplasia III) 12/21 DX:GARRETT III (cervical intraep ithelial neoplasia III); COMMENT: GARRETT II - III; Dr. Blank Opiate addiction ([facility] V2 4, [facility] V28) DX:Opiate addiction ([facility]); C OMMENT: pain meds (not prescribed) Tobacco [...] care for your loved ones. For example, child care assistant or elderly care for an older adult? [...] 3:00 PM EDT Office Visit Adult Medicine [facility] [address], [place] [phone] Iris Samano PA [address] [place], [place] Health Maintenance Due Date Last Done [...] Most Recently Relevant to Health Maintenance [facility] Care Teams Cargo Vessel Stewardess Relationship Specialty Start Date End Date Natacha Still MD [address] [place] [phone] PCP - General Internal Medicine 11/13/24
[2025-08-17 19:02] LABS: Ferritin 35 ng/mL (10-250); Free T4 (Free Thyroxine) 0.93 ng/dL (0.71-1.85); Thyroid Stimulating Hormone 2.45 uIU/mL (0.32-4.0)
[2025-08-17 19:07] LABS: Alanine Aminotransferase 34 U/L (0-31); Albumin Level 4.7 g/dL (3.5-5.0); Alkaline Phosphatase 41 U/L (39-117); Anion Gap 9 (12-20); Aspartate Amino Transferase 29 U/L (5-31); Blood Urea Nitrogen 18 mg/dL (9-16); Calcium 10.3 mg/dL (8.4-10.2); Carbon Dioxide 26 mmol/L (22-29); Chloride 108 mmol/L (96-108); Estimated Glomerular Filt Rate > 60; Iron 105 mcg/dL (30-160); Percent Iron Saturation 29 % (15-50); Potassium 3.7 mmol/L (3.3-5.1); Sodium 139 mmol/L (135-145); Total Iron Binding Capacity 357 mcg/dL (228-428); Total Protein 6.4 g/dL (6.5-8.0); Unsaturated Iron Binding 252 ug/dL
[2025-08-18 00:03] LABS: Folate 12.1 ng/mL (> or = 4.0)
== END ==
LOC: HO.CARD 14:39
PROVIDERS: PCP Internal Medicine; Visit Provider Psychiatry & Neurology Psychiatry
DX: Z13.6 Encounter for screening for cardiovascular disorders (principal); Z13.1 Encounter for screening for diabetes mellitus; F33.2 Major depressive disorder, recurrent severe without psychotic features; D61.818 Other pancytopenia; F10.90 Alcohol use, unspecified, uncomplicated
CPT/HCPCS: 36415; 80053; 82728; 82746; 83036; 83540; 83970; 84439; 84443; 85025; 85652; 86140; 87086; 93005

== ENCOUNTER → 2025-08-17 15:11 | Outpatient (BNV) | payer BC, SELFPAY | PROVIDERS: PCP Internal Medicine; Visit Provider Internal Medicine | DX: Z13.6 Encounter for screening for cardiovascular disorders (principal) | CPT/HCPCS: 93010 ==

== ENCOUNTER 2025-08-30 13:05 | Outpatient (AMB) | payer BC, SELFPAY ==
[2025-08-30 13:18] VITALS: BP 122/76; PULSE 78; O2SAT 97
--- NOTE | 2025-08-30 13:18 | A.OFFVISCC_ITS ---
Vital Signs 08/30/25 13:18 BP 122/76 Pulse 78 Pulse Oximetry (%) 97 Intake Visit Reasons: MAT Allergies vancomycin Allergy (Intermediate, Verified 08/30/25 13:19) Anaphylaxis HPI Comments Details: A 39-year-old female presents for a follow-up visit r/t AUD. Reports sobriety for the past 5-1/2 weeks with naltrexone. Denies use of opiates, alcohol, and other substances with the exception of cigarette and marijuana use. She returned back to work on a full-time basis and is progressing well with sobriety process. Review of Systems Const All systems reviewed & are unremarkable except as noted in HPI and below Physical Exam Vital Signs: Last Vital Signs Pulse 78 08/30/25 13:18 BP 122/76 08/30/25 13:18 Pulse Ox 97 08/30/25 13:18 Const General: cooperative [facility] Medical History Eczema Deviated septum No known health problems Substance abuse Social History Household Members: Other Household Members Other:: One dog and two cats Housing: Condominium Comment: [place] 08/17/25 Patient Tobacco Use Status: Current everyday Tobacco user Tobacco use type: Cigarette Substance Use Type: Marijuana service: No Current occupational status: employed Social History: She is 1 of 3 girls. Parents and when she was for an she was raised primarily by her mother. No marriages and no children. She has a bachelor's degree in social work. Currently lives alone and her job is Substance History: In jeopardy. Trauma History: None Assessment & Plan Assessment & Plan (1) Alcohol use disorder: Code(s): F10.90 - Alcohol use, unspecified, uncomplicated Category: Medical Plan The plan of care is to continue with naltrexone 50 mg, thiamine 100 mg, and folic acid 1 mg daily. Encouraged to engage in risk reduction activities to minimize cigarette and cannabis use. She continues to attend AA meetings and is utilizing available resources to support recovery process. Follow-up in 3 months or sooner if needed. Medications: Refilled naltrexone Take 1 tablet daily 50 mg PO DAILY 30 tabs 3RF 30 days Patient Instructions: - Continue with naltrexone, thiamine, and folic acid. - Engage in risk reduction activities to minimize cigarette and cannabis use. - Follow-up in 3 months or sooner if needed. - Call with questions, concerns, or to report side effects/new onset of symptoms to [facility] - The patient verbalized understanding and agreed with plan of care.
--- OUTSIDE RECORDS SUMMARY | 2025-08-30 17:01 | XMS_ITS | Encounter Summary ---
Author Organization [facility] Address [address] [place] [address] Care Team Providers Care Dye Colorist Formulator Name Role Phone Natacha Still MD Primary Care Prov ider Reason for Referral * Consultation (Routine) - Closed Specialty Diagnoses / Procedures Referred By Hugh pereira Referred To Contact Neurology Diagnoses LOC (loss of consciousness) ([facility]/HCC V24, [facility] V28) Family history of Alzheimer disease Marguerite Ellison PA [address] [place] [address] Phone: tel: fax: [facility] [address] [address] Phone: tel: fax: Referral ID Status Reason Start Date Expiration Date V isits Requested Visits Authorized [id number] Closed Specialty Services Required 06/27/2025 06/27/2026 1 1 Encounter Details Date Type Department Care Team (Late st Contact Info) Description 05/30/2025 Telephone Adult Medicine [address] [phone] Marguerite Ellison PA [address] [place] [address] Social History Tobacco Use Types Packs/Day Years [...] care for your loved ones. For example, exceptional children teacher assistant or elderly care for an older [...] on file Sexual Orientation Not on file documented as of this encounter Progress Notes * Babita Chou MA - 08/27/2025 1:17 PM EST Received notes and adela from behavior [facility], will place on your desk for review * JOSE Castaneda - 06/27/2025 10:20 AM EDT Bia message sent to pt. * Jenny Matthews MA - 06/27/2025 9:04 AM EDT Attempt #3 to reach pt, pt need to go [facility] lala Izaguirre NP office, to sign theform release to get his record. Please send a letter. Thanks * Jenny Matthews MA - 06/26/2025 4:10 PM EDT Called pt lvm to return my phone call. * Jenny Matthews MA - 06/14/2025 11:40 AM EDT Called pt lvm to return my phone call. * JOSE Castaneda - 05/30/2025 1:30 PM EDT Patient follows with [facility] Jeana Izaguirre NP. Did verbally agree to let our office make out reach to this provider as I would like provider to consider adjustment in regimen. It looks like the phone number for this office is [phone]. Can we please get a formal record release to proceed with coordinating care with patient's psychiatric provider. documented in this encounter Plan of Treatment Upcoming Encounters Date Type Department Care Team (Late st Contact Info) Description 06/06/2026 3:00 PM EDT Office Visit Adult Medicine [facility] [address] [place], [place] [phone] Iris Samano PA [address] [place], [place] Scheduled Referrals Name Type Priority Associated Diagnoses Order Schedule Ambulatory referral to Neurology Outpatient Referral Routine LOC (loss of consciousness) ([facility] V24, [facility] V28) Family history of Alzheimer disease 1 Occurrences starting 06/27/2025 until 06/27/2026 documented as of this encounter Visit Diagnoses Diagnosis LOC (loss of consciousness) ([facility] V24, [facility] V28)- Primary Other alteration of consciousness Family history of Alzheimer disease documented in this encounter Additional Health Concerns Assessment Noted Time PHQ-9 Depression Total Score: 14 025 1:40 PM EDT documented as of this encounter Care Teams Dye Colorist Formulator Relationship Specialty Start Date End Date Natacha Still MD [address] [place] [address] PCP - General Internal Medicine 11/13/24 documented as of this encounter
--- OUTSIDE RECORDS SUMMARY | 2025-08-30 17:01 | XMS_ITS | Clinical Summary ---
Author Organization [facility] Address [address] [facility] [address] [place] [phone] Phone Care Team Providers Care Fisheries Management Biologist Name Role Phone Bev Bolanos MD Primary [...] SEE NARRATIVE - 01/10/2021 12:17 [place] [address] Conference Coordinator: Dorene Moreland MD CODE CLERK Cytology Report FINAL DIAGNOSIS A. PAP [...] 56, 58, 59, 66, 68) by Edgar Isanti Onclarity HR-HPV analysis. Clinical correlation is advised. This HPV test was performed at [facility], [address] [place] [address]. This test has been FDA approved for SurePath cervical cytology specimens. The accuracy and precision of this test for all other specimen sources has been verified in the Cytopathology Laboratory of the [facility] and has not been cleared or approved by the U.S. Food and Drug Administration. Clinical correlation is advised. CLINICAL HISTORY Date of Last Menstrual Period: 12-10-2020 Other Clinical Conditions: Screening Pap SPECIMEN SOURCE A: PAP SMEAR (SUREPATH) CE Patient Name: REKHA VILLAFANA : 1985 (Age: 35) Sex: F Institution: [facility] Location: [facility] Date of Collection: 01/03/2021 Date of Reported: 01/10/2021 12:17 Results to: Kevin Blank MD, BS Kevin Blank MD CYTOLOGY ORDERABLES Final Res ult SEE NARRATIVE from Last 3 Months or Most Recently Relevant to Health Maintenance [place] [address] [place] [address] NON NSPG PCP [employer] [employer] [facility] [employer] NET [place] [address] [place] [address] NON NSPG PCP [employer] NET PARTIAL [facility] NON NSPG PCP S[employer] S[employer] NET [place] [address] [address] NON NSPG PCP S[employer] S[employer] NET PARTIAL [facility] NON NSPG PCP [employer] NET PARTIAL NON NSPG PCP [employer] Member Subscriber Plan / Payer (Ef fective 2021-Present) Name:Rekha Villafana Relation to Subscriber:Self Name:Rekha Villafana Payer ID:[id number] Type:[employer] Address: [address] [place] [address] [employer] S[employer] NET [place] [address] NON NSPG PCP [employer] Member Subscriber Plan / Payer (Ef fective 2021-Present) Name:Rekha Villafana Relation to Subscriber:Self Name:Rekha Villafana Payer ID:[id number] Type:[employer] Address: [address] [place] [address] [employer] S[employer] NET PARTIAL NON NSPG PCP [employer] [facility] PART[place] [address] NON NSPG PCP [employer] [facility] NET PARTIAL Care Teams Fisheries Management Biologist Relationship Specialty Start Date End Date Bev Bolanos MD [address] [place] [address] PCP - General 09/16/17 Additional Source Comments The information contained in this document represents components of the legal health record. It is not the complete legal health record.[facility]
--- OUTSIDE RECORDS SUMMARY | 2025-08-30 17:01 | XMS_ITS | Clinical Summary ---
Author Organization [address] Address [address] [place] [phone] Phone Care Team Providers Care Sales Engineer Name Role Phone Natacha Still MD Primary [...] II - III; Dr. Blank Opiate addiction 09/18/2024 Overview (09/18/2024): pain meds (not prescribed) Opioid dependence in remission 05/20/2018 Back spasm 02/03/2017 Humeral fracture 11/28/2013 Overview (09/18/2024): R; at the greater tuberosity Overweight 10/09/2013 Eczema 07/29/2011 Anxiety 07/03/2011 Depression 07/03/2011 Sleep disorder 07/03/2011 Acne 10/03/2008 Tobacco use disorder 10/03/2008 Encounters Date Type Department Care Team Description 07/24/2025 3:15 PM EST Consult Orthopedic Surgery - [address] [phone] Jasper Darby DPM Acquired hallux valgus of left foot (Primary Dx); Acquired hallux valgus of right foot 06/05/2025 8:00 AM EDT Office Visit Adult Medicine [address] [phone] Iris Samano PA Routine general medical examination at a health care facility (Primary Dx); Tobacco use disorder; GARRETT III (cervical intraepithelial neoplasia III); Screening for cardiovascular condition; Screening for HIV (human immunodeficiency virus); Need for hepatitis C screening test; Screen for STD (sexually transmitted disease) from Last 3 Months Immunizations Immunization Administration Dates Next Due DTP 01/11/1990, 6,03/13/1985,01/11,1984 Hepatitis B ([id number] , Recombivax HB-Adult) 19yo and older 01/21/2000,08/20/1999,07/16/1999 [...] Site/Laterality Comments FINGER SURGERY 09/13/2012 - 09/12/2013 MS DRAINAGE FINGER ABSCESS SIMPLE NASAL SEPTUM SURGERY 09/13/2012 - 09/12/2013 Bilateral Domingo Samayoa Medical History Medical History Date Comments Meningitis spinal 08/1985 DX:Meningitis spinal Otitis DX:Otitis Varicella DX:Varicella GARRETT III (cervical intraepith elial neoplasia III) 12/21 DX:GARRETT III (cervical intraep ithelial neoplasia III); COMMENT: GARRETT II - III; Dr. Blank Opiate addiction ([facility] V2 4, [facility] V28) DX:Opiate addiction ([facility]); C OMMENT: pain meds (not prescribed) [...] for your loved ones. For example, child welfare counselor or elderly care for an older adult? [...] on file Sexual Orientation Not on file Last Filed Vital Signs [...] 3:00 PM EDT Office Visit Adult Medicine [facility] [address] [place], [place] [phone] Iris Samano PA [address] [place], [place] Health Maintenance Due Date Last Done Comments Breast Cancer Screening 1985 Drug Screen 1985 Non-Opioid Controlled Substance Agreement 1985 HPV Vaccines (1 - 3-dose SCDM [...] Recently Relevant to Health Maintenance Results * Hm Pap Smear (11/03/2016) Pap smear No Interpretation , Abstracted us Historical Provider MD HEALTH MAINTENANCE Final Result * Lipid panel (05/06/2016) LDL/HDL Ratio 2 0 - 4 Triglycerides 69 0 - 150 mg/dL Cholesterol 186 0 - 200 mg/dL HDL 90 >=40 mg/dL LDL Cholesterol 82 0 - 100 mg/dL Blood Venous blood specimen / Unknown Historical Provider LAB BLOOD ORDERABLES Rosa l Result from Last 3 Months or Most Recently Relevant to Health Maintenance Insurance [facility] Care Teams Sales Engineer Relationship Specialty Start Date End Date Natacha Still MD [address] [place] [phone] PCP - General Internal Medicine 11/13/24
== END 2025-08-30 13:42 | disposition home or self-care (01) ==
LOC: HO.HCC 13:05
PROVIDERS: PCP Internal Medicine; Visit Provider Clinical Nurse Specialist Psychiatric/Mental Health
DX: F10.90 Alcohol use, unspecified, uncomplicated (principal)
CPT/HCPCS: 99213